=== PATIENT | female | born 2005 | race Caucasian/White ===

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

== ENCOUNTER 2023-07-23 21:43 | Emergency (ER) | payer MEDICAID, SELFPAY ==
--- NOTE | 2023-07-23 21:45 | RT.EKG_ITS ---
APPROVED REPORT Exam: Resting ECG Reason for Exam: chest pain Patient Location: E HR:115 bpm ECG Measurements Heart Rate 115 AXIS SC 119 P 74 QRSd 77 QRS 58 QT 312 T 15 QTc 433 Conclusion Sinus tachycardia...rate> 99 Probable left atrial enlargement...P >50mS, <-0.10mV V1
[2023-07-23 21:46] VITALS: BP 139/78; PULSE 143; TEMP 36.1; O2SAT 100
[2023-07-23 22:30] LABS: Abs Immature Grans 0.06 10^3/uL (0.0-0.06); Absolute Basophil Count 0.07 10^3/uL (0.0-0.2); Absolute Eosinophil Count 0.13 10^3/uL (0.0-0.7); Absolute Lymphocyte Count 1.97 10^3/uL (1.2-3.4); Absolute Monocyte Count 0.49 10^3/uL (0.1-0.8); Absolute Neutrophil Count 8.16 10^3/uL (1.2-6.7); Basophils % 0.6; Eosinophils % 1.2; HCT 42.1 % (36.0-46.0); HGB 13.8 g/dL (11.2-15.7); Immature Grans % 0.6; Lymphocytes % 18.1; MCH 28.7 pg (27.0-33.0); MCHC 32.8 % (32.0-36.0); MCV 88 fL (80-95); MPV 9.3 fL (8.0-11.0); Monocytes % 4.5; Platelet Count 281 10^3/uL (130-400); RBC 4.81 10^6/uL (3.93-5.22); RDW 12.5 % (11.7-14.6); RDW-SD 40.1 fL; WBC 10.88 10^3/uL (4.4-10.8)
[2023-07-23] MEDS: Ondansetron 4 MG/2 ML VIAL IVP (22:33)
[2023-07-23] MEDS: Ketorolac 15 MG/ML VIAL IVP (22:33)
[2023-07-23] MEDS: Normal Saline 1,000 ML 1000 ML IV (22:34)
[2023-07-23 22:40] LABS: Bilirubin Negative (Negative); Blood Trace-lysed (Negative); Clarity Sl Cloudy (Clear); Glucose Negative (Negative); Ketones Negative (Negative); Leukocyte Esterase Trace (Negative); Nitrite Negative (Negative); Specific Gravity >= 1.030 (1.005-1.025); Urobilinogen 0.2 mg/dL (Up to 0.2); pH 6.5 (5-8)
[2023-07-23 22:43] LABS: ALT 17 U/L (14-59); AST 14 U/L (15-37); Albumin 4.4 g/dL (3.4-5.0); Alkaline Phosphatase 92 U/L (46-116); Anion Gap 9.7 mmol/L (3-11); BUN 11 mg/dL (7-18); Bilirubin, Total 0.3 mg/dL (0.2-1.0); CO2 28.3 mmol/L (21.0-32.0); CREATININE 0.8 mg/dL (0.55-1.02); Calcium 8.8 mg/dL (8.5-10.1); Chloride 103 mmol/L (98-107); ETHANOL BLOOD < 3.0 mg/dL (<10); Estimated GFR 108.11 (mL/min/1.73m2); Glucose 151 mg/dL (74-106); Potassium 3.5 mmol/L (3.5-5.1); Sodium 141 mmol/L (136-145); Total Protein 7.9 g/dL (6.4-8.2)
[2023-07-23 22:50] LABS: Bacteria Moderate HPF (Negative); C & S Indicated? No/Sq. Contamination; Casts Negative LPF (Negative); Crystals Few Amorphous HPF (Negative); Epithelial Cells Many HPF (Negative); Mucus Moderate (Negative); RBC 0-2 HPF (0-2); WBC 0-2 HPF (0-5)
[2023-07-23 22:51] LABS: *AMPHETAMINES SCREEN URINE Negative (Negative); *BARBITURATES SCREEN URINE Negative (Negative); *BENZODIAZEPINES SCREEN URINE Negative (Negative); Cannabinoids THC Positive (Negative); Cocaine Screen,Urine Negative (Negative); METHADONE URINE SCREEN Negative (Negative); OPIATES URINE SCREEN Negative (Negative)
--- NOTE | 2023-07-23 22:51 | ED.GENADUL_ITS ---
Discharge Plan Disposition Patient Disposition: Home Condition: Improving Discharge Details Clinical Impression: Cannabis intoxication delirium without use disorder, Back pain, Nausea & vomiting Primary Care Provider: Mayank Sevilla ED Provider: Ced Manjarrez Home Meds and New Rx's Prescriptions: New cyclobenzaprine 10 mg tablet 10 mg PO TID PRN (Reason: muscle spasm) Qty: 20 0RF naproxen [EC-Naprosyn] 375 mg tablet,delayed release (DR/EC) 375 mg PO BID Qty: 20 0RF Discontinued ibuprofen 600 mg Tablet 600 mg PO QID PRN PRNQty: 0 0RF cyclobenzaprine 10 mg tablet Patient Comments: TAKE 1 TABLET BY MOUTH ONCE DAILY AT BEDTIME NEEDED No Action acetaminophen 325 mg Tablet 650 mg PO Q4H PRN PRNQty: 0 0RF nicotine 21-14-7 mg/24 hr patch, TD daily, sequential 1 patch transdermal DAILY Qty: 56 0RF fluticasone propionate 50 mcg/actuation spray,suspension INTRANASAL Patient Comments: USE 1 SPRAY(S) IN EACH NOSTRIL ONCE DAILY escitalopram oxalate 10 mg tablet Patient Comments: TAKE 1 TABLET BY MOUTH ONCE DAILY Discharge Instructions Instructions: Back Pain (ED) Additional Instructions: You can take 1 Naprosyn tablet, every 12 hours with food, as needed for low back discomfort. You can take 1 cyclobenzaprine tablet, up to every 8 hours, as needed for additional relief of back pain and spasm. This medication may make you sleepy and impair your coordination. You should use caution similar to alcohol when taking it. Never drive or perform any hazardous activities, be prepared to get some rest. Follow-up with your regular primary care provider for ongoing management of your chronic low back pain symptoms. He can always return to the ER for any new concerns or sudden changes in your health which you feel require emergency medical attention. Discharge Data Discharge Physician: Ced Manjarrez [facility] General Date/Time Provider Initiated Documentation: 07/23/23 21:54 . HPI Narrative: The patient is a 18-year-old female, with a past medical history significant for anxiety, depression, and chronic back pain, who presents to the emergency department this evening after developing multiple symptoms after she smoked marijuana this evening for the first time and for 5 years. The patient tells me that she has been out of Flexeril for her low back pain and her boyfriend went to the dispensary [place] to get some marijuana for her to see if that would help her back pain. She smoked some marijuana and developed nausea, vomiting, dizziness, and some chest discomfort. The patient also reports that she has been having ongoing pain in my cervix for the last 4 days. She tells me that she has a sharp pain in the base of her pelvis, which has been ongoing. The patient states that she recently started her menstrual cycle. The patient denies any associated diarrhea. The patient denies any associated fevers or chills. The patient has slurred speech and has the appearance of marijuana intoxication. Related Data Home Medications Medication Instructions Recorded Confirmed acetaminophen 325 mg tablet 650 mg (2 x 325 mg) PO Q4H PRN PRN 04/02/22 07/23/23 #0 tabs nicotine 1 patch transdermal DAILY #56 04/02/22 07/23/23 21mg/24hr-14mg/24hr-7mg/24hr daily patches transderm patches,sequentl escitalopram oxalate 10 mg tablet mg 07/23/23 fluticasone propionate 50 intranasal 07/23/23 mcg/actuation nasal spray,suspension cyclobenzaprine 10 mg tablet 10 mg PO TID PRN muscle spasm #20 07/24/23 tabs naproxen 375 mg tablet,delayed 375 mg PO BID #20 tabs 07/24/23 release (EC-Naprosyn) Previous Rx's Medication Instructions Recorded acetaminophen 325 mg tablet 650 mg (2 x 325 mg) PO Q4H PRN PRN 04/02/22 #0 tabs nicotine 1 patch transdermal DAILY #56 04/02/22 21mg/24hr-14mg/24hr-7mg/24hr daily patches transderm patches,sequentl cyclobenzaprine 10 mg tablet 10 mg PO TID PRN muscle spasm #20 07/24/23 tabs naproxen 375 mg tablet,delayed 375 mg PO BID #20 tabs 07/24/23 release (EC-Naprosyn) Allergies Allergy/AdvReac Type Severity Reaction Status Date / Time No Known Allergies Allergy Verified 07/23/23 21:50 General Stated Complaint: Nausea/Vomit/Diar RANDALL: 3 Exam Const General: cooperative, no acute distress and well developed Eyes Conjunctivae: conjunctival abnormality (Injected) EOM: EOM intact bilaterally Resp Effort & Inspection: normal respiratory effort and able to speak in complete sentences Auscultation: clear to auscultation bilaterally Cardio Rate: tachycardic Rhythm: regular rhythm Heart Sounds: S1 normal and S2 normal GI Inspection: normal to inspection Palpation: soft Auscultation: normal bowel sounds Other: Patient reports suprapubic tenderness. There is no rigidity or severe pain to distraction indicative of peritonitis Skin Other: Warm and dry, no obvious rashes Neuro Cranial Nerves: CN's II-XI intact bilaterally Cognition: abnormal cognition Speech: abnormal speech slurred Motor: muscle tone normal throughout and strength 5/5 throughout Sensory Exam: no sensory deficits noted Course Reevaluation(s) Time: 00:06 Reevaluation: The patient reports that she is feeling mildly better after pain medications and nausea medications here in the emergency room. The patient was given a liter of fluid and tolerated a p.o. challenge of oral crackers. She tells me that she is now very hungry and would like some food. I offered additional observation for the patient. I offered to perform a pelvic exam and obtain a bedside ultrasound. In the end, after our informed discussion, the patient would like to be discharged home with some medications will be appropriate for her chronic low back pain. She will be prescribed a short course of high-dose anti- inflammatory medications with an associated muscle relaxer. She has taken Flexeril in the past without problems and this will be the medication that is prescribed to her. Vital Signs Vital signs: Vital Signs Temperature 36.1 C L 07/23/23 21:46 Pulse 143 H 07/23/23 21:46 Blood Pressure 139/78 07/23/23 21:46 Pulse Oximetry 100 07/23/23 21:46 Temperature 36.1 C L 07/23/23 21:46 Pulse 143 H 07/23/23 21:46 Respiratory Effort Normal 07/23/23 21:49 Blood Pressure 139/78 07/23/23 21:46 Blood Pressure Position Sitting 07/23/23 21:46 Pulse Oximetry 100 07/23/23 21:46 Oxygen Delivery Method Room Air 07/23/23 21:46 Oxygen Flow Rate 0 07/23/23 21:46 Pain Level 7 07/23/23 21:46 Lab/Test Results Lab/Test Results: Laboratory Tests Range/Units 07/23/23 07/23/23 22:00 22:03 WBC (4.4-10.8) 10^3/uL 10.88 H RBC (3.93-5.22) 10^6/uL 4.81 Hgb (11.2-15.7) g/dL 13.8 Hct (36.0-46.0) % 42.1 MCV (80-95) fL 88 MCH (27.0-33.0) pg 28.7 MCHC (32.0-36.0) % 32.8 RDW (11.7-14.6) % 12.5 Plt Count (130-400) 10^3/uL 281 MPV (8.0-11.0) fL 9.3 Immature Gran % 0.6 Neutrophils % 75.0 Lymphocytes % 18.1 Monocytes % 4.5 Eosinophils % 1.2 Basophils % 0.6 Nucleated RBC % (0.0-0.3) % 0.0 Absolute Neutrophils (1.2-6.7) 10^3/uL 8.16 H Absolute Lymphocytes (1.2-3.4) 10^3/uL 1.97 Absolute Monocytes (0.1-0.8) 10^3/uL 0.49 Absolute Eosinophils (0.0-0.7) 10^3/uL 0.13 Absolute Basophils (0.0-0.2) 10^3/uL 0.07 Sodium (136-145) mmol/L 141 Potassium (3.5-5.1) mmol/L 3.5 Chloride (98-107) mmol/L 103 Carbon Dioxide (21.0-32.0) mmol/L 28.3 Anion Gap (3-11) mmol/L 9.7 BUN (7-18) mg/dL 11 Creatinine (0.55-1.02) mg/dL 0.8 Est GFR (CKD-EPI 2020) (mL/min/1.73m2) 108.11 Glucose (74-106) mg/dL 151 H Calcium (8.5-10.1) mg/dL 8.8 Total Bilirubin (0.2-1.0) mg/dL 0.3 AST (15-37) U/L 14 L ALT (14-59) U/L 17 Alkaline Phosphatase (46-116) U/L 92 Total Protein (6.4-8.2) g/dL 7.9 Albumin (3.4-5.0) g/dL 4.4 Urine Color (Yellow) Yellow Urine Clarity (Clear) Sl Cloudy Urine pH (5-8) 6.5 Ur Specific [place] (1.005-1.025) >= 1.030 H Urine Protein (Neg-Trace) mg/dL Negative Urine Ketones (Negative) mg/dL Negative Urine Blood (Negative) Trace-lysed H Urine Nitrite (Negative) Negative Urine Bilirubin (Negative) Negative Urine Urobilinogen (Up to 0.2) mg/dL 0.2 Ur Leukocyte Esterase (Negative) Trace H Urine RBC (0-2) HPF 0-2 Urine WBC (0-5) HPF 0-2 Ur Epithelial Cells (Negative) HPF Many Urine Crystals (Negative) HPF Few Amorphous Urine Bacteria (Negative) HPF Moderate Urine Casts (Negative) LPF Negative Urine Mucus (Negative) Moderate Ur Culture Indicated? No/Sq. Contamination Urine Glucose (Negative) mg/dL Negative Ethyl Alcohol (<10) mg/dL < 3.0 POC- Test(urine) Negative Medical Decision Making The patient was seen and examined. 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 Her EKG reveals a sinus tachycardia with a ventricular response rate of 115 bpm. There is relatively normal repolarization throughout other than the inferior leads where there are scattered abnormalities. The patient has slurred speech, difficulty with cognitive function, and bilaterally injected sclera and conjunctiva, with the obvious appearance of marijuana intoxication. She has a multitude of other complaints including chest pain, abdominal pain, chronic low back pain, and cervix pain. The last of these appears to be more chronic in nature, but seems to be associated with her menstruation. She is not by [id number] testing. She will have a standard abdominal workup obtained for lower abdominal pathology. She will be tested for other drugs of misuse and alcohol as part of her toxicologic workup. The patient was given IV fluid hydration, IV Zofran, and IV Toradol to help improve her symptoms. The patient will be reevaluated after some period of observation to determine if she needs anxiolytic medications to help out with her marijuana toxidrome. She will be reassessed for her hydration level and we can certainly address her pelvic discomfort if needed by ultrasound or pelvic exam in an appropriate interval. 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 Mother Crohn's disease Mental disorder Father Asthma as child Other Diabetes mat great GM, pat cousin Mental disorder both sides with some anxiety/depression Stroke MGF Asthma maternal Social History Smoking/Tobacco Use Status: Former Tobacco Use Smoking risk assessment performed?: Yes Alcohol Intake: never Drug use: Never Substance use type: marijuana Do you feel safe at home: Yes Do you feel safe in your relationship?: Yes
[2023-07-23 22:52] LABS: Tricyclic Antidepressants Negative (Negative)
[2023-07-24 00:10] VITALS: PULSE 77; RESP 18; TEMP 36.6; O2SAT 98
== END 2023-07-24 00:21 | disposition home or self-care (01) ==
PROVIDERS: Emergency Provider Emergency Medicine Emergency Medical Services; PCP Family Medicine
DX: F12.921 Cannabis use, unspecified with intoxication delirium; M54.50 Low back pain, unspecified; G89.29 Other chronic pain; R11.2 Nausea with vomiting, unspecified; R00.0 Tachycardia, unspecified; R07.9 Chest pain, unspecified
CPT/HCPCS: 80053; 80307; 81025; 93005; 96361; 96374; 96375; 99284; 80320; 81003; 81015; 85025; 93010; J1885; J2405

== ENCOUNTER 2023-08-29 11:21 | Emergency (ER) | payer MEDICAID, SELFPAY ==
[2023-08-29 11:24] VITALS: BP 117/71; PULSE 105; RESP 20; TEMP 36.6; O2SAT 100
--- NOTE | 2023-08-29 11:55 | ED.GENADUL_ITS ---
Discharge Plan Disposition Patient Disposition: Home Condition: Stable Discharge Details Clinical Impression: Paronychia of finger Primary Care Provider: Mayank Sevilla ED Provider: Bradly Jeronimo Home Meds and New Rx's Prescriptions: New mupirocin 2 % ointment 1 applic topical TID Qty: 15 0RF Continued 28-800 mg-mcg tablet 1 tab PO DAILY escitalopram oxalate 10 mg tablet 10 mg PO DAILY Patient Comments: TAKE 1 TABLET BY MOUTH ONCE DAILY cyclobenzaprine 10 mg tablet 10 mg PO TID PRN (Reason: muscle spasm) Qty: 20 0RF Discharge Instructions Instructions: Paronychia (ED) Additional Instructions: Please perform warm soaks a few times a day for the next 1 week. Apply topical antibiotic ointment after soak. Please contact your primary care physician to arrange follow-up as needed. Return to the ER immediately for any worsening or new concerning symptoms. Referrals: Mayank Sevilla [Primary Care Provider] - [facility] General Mode of arrival: ambulatory . Date/Time Provider Initiated Documentation: 08/29/23 11:29 . Limitations to Documentation: no limitations . Information obtained by: patient . HPI Narrative: 18-year-old female presents with chief complaint of finger infection. Patient notes left third digit with localized swelling, pain and inflammation along her nailbed over the past week. Symptoms worsening. Patient has no she bites her nails. Related Data Home Medications Medication Instructions Recorded Confirmed escitalopram oxalate 10 mg tablet 10 mg PO DAILY 07/23/23 08/29/23 cyclobenzaprine 10 mg tablet 10 mg PO TID PRN muscle spasm #20 07/24/23 08/29/23 tabs mupirocin 2 % topical ointment 1 applic topical TID #15 grams 08/29/23 vit no.133-ferrous 1 tab PO DAILY 08/29/23 08/29/23 fumarate 28 mg-folic acid 800 mcg tablet () Previous Rx's Medication Instructions Recorded cyclobenzaprine 10 mg tablet 10 mg PO TID PRN muscle spasm #20 07/24/23 tabs mupirocin 2 % topical ointment 1 applic topical TID #15 grams 08/29/23 Allergies Allergy/AdvReac Type Severity Reaction Status Date / Time No Known Allergies Allergy Verified 08/29/23 11:36 General Stated Complaint: RashLesion RANDALL: 4 Review of Systems Integumentary/Breasts Skin/Breast: Reports as per HPI Exam Const General: cooperative and no acute distress HENMT Mouth: moist mucous membranes Skin Other: Left third digit paronychia Course Vital Signs Vital signs: Vital Signs Temperature 36.6 C 08/29/23 11:24 Pulse 105 H 08/29/23 11:24 Respiratory Rate 20 08/29/23 11:24 Blood Pressure 117/71 08/29/23 11:24 Pulse Oximetry 100 08/29/23 11:24 Temperature 36.6 C 08/29/23 11:24 Temperature Source Temporal Artery Scan 08/29/23 11:24 Pulse 105 H 08/29/23 11:24 Respiratory Rate 20 08/29/23 11:24 Respiratory Effort Normal 08/29/23 11:26 Blood Pressure 117/71 08/29/23 11:24 Blood Pressure Position Sitting 08/29/23 11:24 Pulse Oximetry 100 08/29/23 11:24 Oxygen Delivery Method Room Air 08/29/23 11:24 Oxygen Flow Rate 0 08/29/23 11:24 Pain Level 4 08/29/23 11:24 Procedures Abscess I/D Site: Hand Side (if applicable): Left Local Anesthetic: Other Anesthetic (LE) Technique: Incised with #11 Blade Amount of fluid expressed (mL): 0 Irrigation: No Packing used?: None Complications: Pain Medical Decision Making 18-year-old female, recently learned she is , here with paronychia of the left third digit. No associated cellulitis. Possible tiny abscess. Topical anesthetic ointment applied. Small incision made to drain area. I recommended warm soaks followed by mupirocin ointment and routine outpatient fol low-up. 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 Mother Crohn's disease Mental disorder Father Asthma as child Other Diabetes mat great GM, pat cousin Mental disorder both sides with some anxiety/depression Stroke MGF Asthma maternal Social History Smoking/Tobacco Use Status: Former Tobacco Use Smoking risk assessment performed?: Yes Alcohol Intake: never Drug use: Never Substance use type: marijuana Do you feel safe at home: Yes Do you feel safe in your relationship?: Yes
[2023-08-29] MEDS: Lidocaine/Epinephri/Tetracaine Topical Gel 3 ML TP (12:03)
[2023-08-29 12:43] VITALS: BP 117/71; PULSE 86; RESP 20; TEMP 36.6; O2SAT 100
== END 2023-08-29 12:44 | disposition home or self-care (01) ==
PROVIDERS: Emergency Provider Student in an Organized Health Care Education/Training Program; PCP Family Medicine
DX: O98.811 Other maternal infectious and parasitic diseases complicating pregnancy, first trimester (principal); L03.012 Cellulitis of left finger; Z87.891 Personal history of nicotine dependence
CPT/HCPCS: 10060; 99283

== ENCOUNTER 2023-09-11 10:45 | Emergency (ER) | payer MEDICAID, SELFPAY ==
[2023-09-11 10:50] VITALS: BP 126/87; PULSE 141; RESP 20; TEMP 36.7; O2SAT 100
--- NOTE | 2023-09-11 11:30 | RT.EKG_ITS ---
APPROVED REPORT Exam: Resting ECG Reason for Exam: r/o QT prolongation Patient Location: E HR:75 bpm ECG Measurements Heart Rate 75 AXIS MA 105 P -24 QRSd 76 QRS 34 QT 372 T 19 QTc 416 Conclusion Sinus rhythm...normal P axis, V-rate 60- 99 Physician: no stemi
[2023-09-11 11:40] LABS: Abs Immature Grans 0.01 10^3/uL (0.0-0.06); Absolute Basophil Count 0.06 10^3/uL (0.0-0.2); Absolute Eosinophil Count 0.01 10^3/uL (0.0-0.7); Absolute Monocyte Count 0.59 10^3/uL (0.1-0.8); Absolute Neutrophil Count 3.53 10^3/uL (1.2-6.7); Basophils % 1.1 %; Eosinophils % 0.2 %; HCT 44.4 % (36.0-46.0); Immature Grans % 0.2 %; Lymphocytes % 26.3 %; MCH 28.2 pg (27.0-33.0); MCHC 33.8 % (32.0-36.0); MCV 84 fL (80-95); Monocytes % 10.4 %; Neutrophils % 61.8 %; Platelet Count 249 10^3/uL (130-400); RBC 5.32 10^6/uL (3.93-5.22); RDW 12.3 % (11.7-14.6); RDW-SD 37.6 fL
[2023-09-11] MEDS: Normal Saline 1,000 ML 1000 ML IV (11:44)
[2023-09-11] MEDS: Ondansetron 4 MG/2 ML VIAL IVP (11:45)
--- NOTE | 2023-09-11 11:45 | DI.US_ITS ---
Exam(s) US OB 1ST TRIMESTER EXAM: US OB 1ST TRIMESTER CLINICAL HISTORY: abd pain, n/v, constipation. COMPARISON: No exams were available for comparison TECHNIQUE: Transabdominal Transvaginal first trimester obstetrical ultrasound performed. FINDINGS: Sonographic images demonstrate a single intrauterine gestation. There is a cystic area with in the e ndometrium adjacent to the primary gestational sac which could represent a 2nd gestational sac althou gh there is no pole within it. It measures 6 x 10 by 8 millimeters. A yolk sac and pole are seen within the larger gestational sac.. Sonographically assessed gestational age based upon crown-rump length of 0.8 cm is: 6 weeks 5 days Estimated date of delivery based on this ultrasound is: 01 May 2024 Estimated date of delivery based upon LMP: 28 April 2024 heart rate motion is was visible but not measured.. No free fluid identified. Both ovaries appear sonographically normal. Pelvic Measurments Uterus: 9.7 x 4 x 1 x 6 cm Rt Ovary: 3.0 x 2.2 x 2.9 cm Lt Ovary: 2.8 x 1.5 x 2.8 cm IMPRESSION: Single live intrauterine gestation measuring 6 weeks 5 days. Adjacent small cystic area could represent 2nd gestational sac without visible pole a blighted twin.. DATA REPOSITORY:
--- NOTE | 2023-09-11 12:01 | ED.GENADUL_ITS ---
Discharge Plan Disposition Patient Disposition: Home Condition: Stable Discharge Details Clinical Impression: Nausea and vomiting during , Constipation Primary Care Provider: Mayank Sevilla ED Provider: Tori Burciaga Home Meds and New Rx's Prescriptions: No Action 28-800 mg-mcg tablet 1 tab PO DAILY mupirocin 2 % ointment 1 applic topical TID Qty: 15 0RF escitalopram oxalate 10 mg tablet 10 mg PO DAILY Patient Comments: TAKE 1 TABLET BY MOUTH ONCE DAILY cyclobenzaprine 10 mg tablet 10 mg PO TID PRN (Reason: muscle spasm) Qty: 20 0RF Discharge Instructions Instructions: Constipation (ED) Additional Instructions: I recommend that you use wlbs-[id number] doxylamine (unisom) 25 mg and Vitamin B6 25 mg each night for nausea/vomiting. Please call your primary care provider/[employer] if you have any concerns about nausea and vomiting in . Stay well-hydrated, drinking plenty of fluids throughout the day and eating gentle foods that are soothing to the stomach For constipation I recommend MiraLAX. Please use 1 full cap in 8 ounces of water or other liquid. I recommend they take a dose upon discharge and then again at night. This will help soften your stools. Drink plenty of fluids to remain well-hydrated, as dehydration may increase constipation. Return to emergency care if you develop new severe abdominal pain, uncontrollable vomiting, episodes of passing out, vaginal bleeding, or if you are very worried and need to be rechecked again immediately Referrals: Mayank Sevilla [Primary Care Provider] - [facility] General Date/Time Provider Initiated Documentation: 09/11/23 11:29 . Related Data Home Medications Medication Instructions Recorded Confirmed escitalopram oxalate 10 mg tablet 10 mg PO DAILY 07/23/23 09/11/23 cyclobenzaprine 10 mg tablet 10 mg PO TID PRN muscle spasm #20 07/24/23 09/11/23 tabs mupirocin 2 % topical ointment 1 applic topical TID #15 grams 08/29/23 vit no.133-ferrous 1 tab PO DAILY 08/29/23 09/11/23 fumarate 28 mg-folic acid 800 mcg tablet () Previous Rx's Medication Instructions Recorded cyclobenzaprine 10 mg tablet 10 mg PO TID PRN muscle spasm #20 07/24/23 tabs mupirocin 2 % topical ointment 1 applic topical TID #15 grams 08/29/23 Allergies Allergy/AdvReac Type Severity Reaction Status Date / Time No Known Allergies Allergy Verified 09/11/23 10:54 General Stated Complaint: Nausea/Vomit/Diar RANDALL: 3 Course Vital Signs Vital signs: Vital Signs Temperature 36.7 C 09/11/23 10:50 Pulse 141 H 09/11/23 10:50 Respiratory Rate 20 09/11/23 10:50 Blood Pressure 126/87 09/11/23 10:50 Pulse Oximetry 100 09/11/23 10:50 Temperature 36.7 C 09/11/23 10:50 Temperature Source Skin 09/11/23 10:50 Pulse 141 H 09/11/23 10:50 Respiratory Rate 20 09/11/23 10:50 Respiratory Effort Normal 09/11/23 10:53 Blood Pressure 126/87 09/11/23 10:50 Blood Pressure Position Sitting 09/11/23 10:50 Pulse Oximetry 100 09/11/23 10:50 Oxygen Delivery Method Room Air 09/11/23 10:50 Oxygen Flow Rate 0 09/11/23 10:50 Lab/Test Results Lab/Test Results: Laboratory Tests Range/Units 09/11/23 11:30 WBC (4.4-10.8) 10^3/uL 5.70 RBC (3.93-5.22) 10^6/uL 5.32 H Hgb (11.2-15.7) g/dL 15.0 Hct (36.0-46.0) % 44.4 MCV (80-95) fL 84 MCH (27.0-33.0) pg 28.2 MCHC (32.0-36.0) % 33.8 RDW (11.7-14.6) % 12.3 Plt Count (130-400) 10^3/uL 249 MPV (8.0-11.0) fL 9.0 Immature Gran % % 0.2 Neutrophils % % 61.8 Lymphocytes % % 26.3 Monocytes % % 10.4 Eosinophils % % 0.2 Basophils % % 1.1 Nucleated RBC % (0.0-0.3) % 0.0 Absolute Neutrophils (1.2-6.7) 10^3/uL 3.53 Absolute Lymphocytes (1.2-3.4) 10^3/uL 1.50 Absolute Monocytes (0.1-0.8) 10^3/uL 0.59 Absolute Eosinophils (0.0-0.7) 10^3/uL 0.01 Absolute Basophils (0.0-0.2) 10^3/uL 0.06 Medical Decision Making Miri is a 18-year-old female A0 who is 7 weeks (LMP 07/23/23) who presents to the emergency department for evaluation of lower abdominal pain accompanied by nausea/vomiting and constipation. She reports that she last had a bowel movement 7 days ago. She does not normally have constipation. She reports she started vomiting a couple of days ago, has been unable to hold anything down since onset. She reports lower abdominal pain described as a cramping. Denies fever/chills, congestion, cough, chest pain, blood in stool or emesis, change in bladder function, vaginal discharge, history of STDs, previous pregnancies. She denies significant past medical history. Physical exam reassuring. Abdomen is soft, nondistended, diffusely tender to palpation with normal active bowel sounds. Easy work of breathing, lung sounds clear bilaterally. Mild tachycardia noted. Tacky mucous membranes. Patient declined rectal exam. DDx includes was not limited to: Viral gastroenteritis, ectopic , constipation, fecal impaction, normal nausea and vomiting in I independently interpreted the following tests: CBC reassuring. CMP notable for mild hyponatremia, sodium 133. hCG positive, quantitative 68,419. Ultrasound reassuring, intrauterine gestation measuring 6 weeks 5 days noted with adjacent cystic area that could represent second gestational sac without viable pole. While in the emergency department Lynn received IV fluids, Zofran, and Tylenol. She reported that she felt like her nausea was improved, was able to eat some crackers and drink some anette cristobal Overall workup today reassuring, likely nausea/vomit associated and constipation. Recommend use of MiraLAX at home, as well as vitamin B6 and doxylamine. Reviewed discharge instructions with patient; she is agreeable with plan of care Imaging Data Radiologic Study: Radiologist's impression: Exam(s) US OB 1ST TRIMESTER EXAM: US OB 1ST TRIMESTER CLINICAL HISTORY: abd pain, n/v, constipation. COMPARISON: No exams were available for comparison TECHNIQUE: Transabdominal Transvaginal first trimester obstetrical ultrasound performed. FINDINGS: Sonographic images demonstrate a single intrauterine gestation. There is a cystic area with in the endometrium adjacent to the primary gestational sac which could represent a 2nd gestational sac although there is no pole within it. It measures 6 x 10 by 8 millimeters. A yolk sac and pole are seen within the larger gestational sac.. Sonographically assessed gestational age based upon crown-rump length of 0.8 cm is: 6 weeks 5 days Estimated date of delivery based on this ultrasound is: 01 May 2024 Estimated date of delivery based upon LMP: 28 April 2024 heart rate motion is was visible but not measured.. No free fluid identified. Both ovaries appear sonographically normal. Pelvic Measurments Uterus: 9.7 x 4 x 1 x 6 cm Rt Ovary: 3.0 x 2.2 x 2.9 cm Lt Ovary: 2.8 x 1.5 x 2.8 cm IMPRESSION: Single live intrauterine gestation measuring 6 weeks 5 days. Adjacent small cystic area could represent 2nd gestational sac without visible pole a blighted twin.. 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 Mother Crohn's disease Mental disorder Father Asthma as child Other Diabetes mat great GM, pat cousin Mental disorder both sides with some anxiety/depression Stroke MGF Asthma maternal Social History Smoking/Tobacco Use Status: Former Tobacco Use Smoking risk assessment performed?: Yes Alcohol Intake: never Drug use: Never Substance use type: marijuana Do you feel safe at home: Yes Do you feel safe in your relationship?: Yes
[2023-09-11] MEDS: Acetaminophen 325 MG TAB 650 MG PO (12:04)
[2023-09-11 12:15] LABS: ALT 23 U/L (14-59); AST 12 U/L (15-37); Albumin 4.6 g/dL (3.4-5.0); Alkaline Phosphatase 80 U/L (46-116); Anion Gap 11.6 mmol/L (3-11); BUN 10 mg/dL (7-18); Bilirubin, Total 0.7 mg/dL (0.2-1.0); CO2 20.4 mmol/L (21.0-32.0); CREATININE 0.7 mg/dL (0.55-1.02); Calcium 9.4 mg/dL (8.5-10.1); Chloride 101 mmol/L (98-107); Glucose 80 mg/dL (74-106); Potassium 3.8 mmol/L (3.5-5.1); Sodium 133 mmol/L (136-145); Total Protein 8.4 g/dL (6.4-8.2)
[2023-09-11 12:17] LABS: HCG Quant, Pregnancy 68419 mIU/mL (1-3)
[2023-09-11 12:25] VITALS: BP 98/60; PULSE 90; RESP 16; O2SAT 98
[2023-09-11 14:38] VITALS: BP 100/65; PULSE 127; RESP 16; O2SAT 99
--- NOTE | 2023-09-11 14:40 | NUR.NOTE ---
Nursing Note: patient DC pulse 127 asymptomatic. Patient reported her pulse rate runs high and she follows here pcp about this issue. HR reported to ED provider. Provider suggested to increase fluid intake and f/u with PCP or OB.
== END 2023-09-11 14:38 | disposition home or self-care (01) ==
PROVIDERS: Emergency Provider Nurse Practitioner Family; PCP Family Medicine
DX: O21.8 Other vomiting complicating pregnancy (principal); Z3A.01 Less than 8 weeks gestation of pregnancy; Z87.891 Personal history of nicotine dependence
CPT/HCPCS: 36415; 80053; 93005; 96374; 99284; 76801; 83735; 84702; 85025; 93010; J2405

== ENCOUNTER 2023-09-12 21:22 | Emergency (ER) | payer MEDICAID, SELFPAY ==
[2023-09-12 21:26] VITALS: BP 132/66; PULSE 114; RESP 18; TEMP 36.7; O2SAT 98
[2023-09-12 21:49] LABS: HCT 40.1 % (36.0-46.0); HGB 13.7 g/dL (11.2-15.7); MCH 28.4 pg (27.0-33.0); MCHC 34.2 % (32.0-36.0); MCV 83 fL (80-95); Platelet Count 242 10^3/uL (130-400); RBC 4.82 10^6/uL (3.93-5.22); RDW 12.3 % (11.7-14.6); RDW-SD 37.5 fL; WBC 6.42 10^3/uL (4.4-10.8)
--- NOTE | 2023-09-12 21:55 | W.ED.GENAD ---
Discharge Plan Disposition Patient Disposition: Home Condition: Stable Discharge Details Clinical Impression: Yanira-Kelly tear, Nausea and vomiting during Primary Care Provider: Mayank Sevilla ED Provider: Tori Burciaga Home Meds and New Rx's Prescriptions: New doxylamine-pyridoxine (vit B6) [Diclegis] 10-10 mg tablet,delayed release (DR/EC) 1 tab PO QHS Qty: 20 0RF Rx Instructions: Take 2 tablets at bedtime for days one and two. If symptoms persist, may take 1 tablet in the AM and 2 tablets at bedtime starting day three. No Action 28-800 mg-mcg tablet 1 tab PO DAILY mupirocin 2 % ointment 1 applic topical TID Qty: 15 0RF escitalopram oxalate 10 mg tablet 10 mg PO DAILY Patient Comments: TAKE 1 TABLET BY MOUTH ONCE DAILY cyclobenzaprine 10 mg tablet 10 mg PO TID PRN (Reason: muscle spasm) Qty: 20 0RF Discharge Instructions Additional Instructions: Call your family doctor to schedule an appointment first thing in the morning. I recommend that you discuss your visit to the last 2 days over the phone prior to then; a telehealth appointment is a great idea to check in prior to an in person appointment. Please take the Diclegis (combination vitamin B6 and Unisom) as prescribed. This has been sent to the [facility] in [place]. 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 You may use the Zofran provided only for severe nausea/vomiting for the next couple of days while the likely just is taking time to work. This is only a short-term prescription, not to be used long-term. I also recommend that you use strong anette tea to help with nausea in . Stay well-hydrated, drinking plenty of electrolyte rich fluids such as Gatorlyte and eating crackers. Return to emergency care if develop severe abdominal pain, uncontrollable vomiting despite treatment, episodes of passing out, vaginal bleeding, or if you are very worried and need to be rechecked again immediately Referrals: Andrew Frederick [ CONSULTING PHYSICIAN] - HPI General Date/Time Provider Initiated Documentation: 09/12/23 21:25. HPI Narrative: Miri is a 18-year-old G1, who is 6 weeks 6 days with a single intrauterine based on ultrasound who presents to the emergency department for continued nausea/vomiting with lower abdominal discomfort. She was seen here in the emergency department yesterday for same symptoms, had full resolution of symptoms after IV fluids and Zofran. Today she became concerned because she was unable to hold out any fluids all day and vomited dark red blood this evening. She denies fever/chills, viral symptoms such as congestion, sore throat, cough, vaginal bleeding or discharge, change in urine output. She has been constipated yesterday, did have a bowel movement today. Denies blood in stool. Boyfriend at bedside. Related Data Home Medications Medication Instructions Recorded Confirmed escitalopram oxalate 10 mg tablet 10 mg PO DAILY 07/23/23 09/12/23 cyclobenzaprine 10 mg tablet 10 mg PO TID PRN muscle spasm #20 07/24/23 09/12/23 tabs mupirocin 2 % topical ointment 1 applic topical TID #15 grams 08/29/23 09/12/23 vit no.133-ferrous 1 tab PO DAILY 08/29/23 09/12/23 fumarate 28 mg-folic acid 800 mcg tablet () doxylamine 10 mg-pyridoxine (vit 1 tab PO QHS #20 tabs 09/12/23 B6) 10 mg tablet,delayed release (Diclegis) Previous Rx's Medication Instructions Recorded cyclobenzaprine 10 mg tablet 10 mg PO TID PRN muscle spasm #20 07/24/23 tabs mupirocin 2 % topical ointment 1 applic topical TID #15 grams 08/29/23 doxylamine 10 mg-pyridoxine (vit 1 tab PO QHS #20 tabs 09/12/23 B6) 10 mg tablet,delayed release (Diclegis) Allergies Allergy/AdvReac Type Severity Reaction Status Date / Time No Known Allergies Allergy Verified 09/12/23 21:25 General Stated Complaint: Nausea/Vomit/Diar RANDALL: 3 Review of Systems Narrative: see HPI Exam Const General: cooperative, well developed, well groomed and anxious HENMT Mouth: oral mucosae normal, oropharynx normal and moist mucous membranes abnormal (slightly tacky) Resp Effort & Inspection: normal respiratory effort and able to speak in complete sentences Auscultation: clear to auscultation bilaterally Cardio Rate: tachycardic Rhythm: regular rhythm GI Inspection: normal to inspection Palpation: soft, not firm, no hernias, no pulsatile masses, not rigid and tender (diffuse) Auscultation: normal bowel sounds Course Vital Signs Vital signs: Vital Signs Temperature 36.7 C 09/12/23 21:26 Pulse 114 H 09/12/23 21:26 Respiratory Rate 18 09/12/23 21:26 Blood Pressure 132/66 09/12/23 21:26 Pulse Oximetry 98 09/12/23 21:26 Temperature 36.7 C 09/12/23 21:26 Temperature Source Temporal Artery Scan 09/12/23 21:26 Pulse 114 H 09/12/23 21:26 Respiratory Rate 18 09/12/23 21:26 Respiratory Effort Normal, Non-Labored 09/12/23 21:28 Blood Pressure 132/66 09/12/23 21:26 Blood Pressure Position Sitting 09/12/23 21:26 Pulse Oximetry 98 09/12/23 21:26 Oxygen Delivery Method Room Air 09/12/23 21:26 Oxygen Flow Rate 0 09/12/23 21:26 Pain Level 10 09/12/23 21:26 Lab/Test Results Lab/Test Results: Laboratory Tests Range/Units 09/12/23 21:38 WBC (4.4-10.8) 10^3/uL 6.42 RBC (3.93-5.22) 10^6/uL 4.82 Hgb (11.2-15.7) g/dL 13.7 Hct (36.0-46.0) % 40.1 MCV (80-95) fL 83 MCH (27.0-33.0) pg 28.4 MCHC (32.0-36.0) % 34.2 RDW (11.7-14.6) % 12.3 Plt Count (130-400) 10^3/uL 242 MPV (8.0-11.0) fL 9.0 Medical Decision Making Miri is a 18-year-old G1, who is 6 weeks 6 days with a single intrauterine based on ultrasound who presents to the emergency department for continued nausea/vomiting with lower abdominal discomfort. She was seen here in the emergency department yesterday for same symptoms, had full resolution of symptoms after IV fluids and Zofran. Today she became concerned because she was unable to hold out any fluids all day and vomited dark red blood this evening. She denies fever/chills, viral symptoms such as congestion, sore throat, cough, vaginal bleeding or discharge, change in urine output. She has been constipated yesterday, did have a bowel movement today. Denies blood in stool. Boyfriend at bedside. Physical exam very reassuring. Abdomen is soft, nondistended, diffusely tender to palpation with normal active bowel sounds. Moist mucous membranes. Easy work of breathing, lung sounds clear bilaterally. Normal heart sounds. Patient is alert and interactive, does appear anxious but otherwise in no acute distress. History and presentation consistent with Yanira-Kelly tear due to forceful vomiting in first trimester of . Labs ordered to rule out coagulopathy, LUKAS, electrolyte imbalance, dehydration. No red flags concerning for acute abdomen or bowel obstruction requiring diagnostic imaging, as sx are consistent with previous presentation (yesterday) and are fully resolved with symptomatic mgmt. I independently interpreted the following tests: CBC, BMP, PTT/PT/INR all reassuring. While in the emergency dept Miri received IV zofran and fluids. She did continue to report some nausea, so B6 and diphenhydramine given with good resolution of nausea (pt able to take gingerale). She does continue to report abdominal discomfort, says that tylenol yesterday helped. A dose of APAP given for abd discomfort. Miri reports she is feeling good enough to go home, discharge instructions reviewed with patient and her boyfriend. A bottle of 3 tablets of Zofran given, and prescription for Diclegis sent to pharmacy. 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 Mother Crohn's disease Mental disorder Father Asthma as child Other Diabetes mat great GM, pat cousin Mental disorder both sides with some anxiety/depression Stroke MGF Asthma maternal Social History Smoking/Tobacco Use Status: Former Tobacco Use Smoking risk assessment performed?: Yes Alcohol Intake: never Drug use: Never Substance use type: marijuana Housing: house Do you feel safe at home: Yes Do you feel safe in your relationship?: Yes
[2023-09-12] MEDS: Ondansetron 4 MG/2 ML VIAL IVP (21:57)
[2023-09-12] MEDS: Lactated Ringers 1,000 ML 1000 ML IV (21:57)
[2023-09-12 21:59] LABS: BUN 8 mg/dL (7-18); CREATININE 0.6 mg/dL (0.55-1.02); Calcium 8.9 mg/dL (8.5-10.1); Chloride 102 mmol/L (98-107); Glucose 85 mg/dL (74-106); Potassium 3.6 mmol/L (3.5-5.1); Sodium 137 mmol/L (136-145)
[2023-09-12 22:03] LABS: INR 1.1 (0.9-1.1); PTT Activated 26.7 sec (23.6-32.8); Prothrombin Time 11.4 sec (9.1-11.1)
[2023-09-12] MEDS: diphenhydrAMINE 50 MG/ML VIAL 25 MG IVP (22:55)
[2023-09-12] MEDS: Ondansetron O.D.T. 4 MG TABEF, 3 TABS/BTL PO (23:28)
[2023-09-12] MEDS: Acetaminophen 500 MG TAB PO (23:28)
[2023-09-12 23:36] VITALS: BP 98/67; PULSE 87; RESP 22; TEMP 36.8; O2SAT 99
--- NOTE | 2023-09-12 23:53 | NUR.NOTE ---
Pt placed on care management referral list to see PCP for nausea, vomiting, and to be seen within 1-2 weeks per Naila.
== END 2023-09-12 23:34 | disposition home or self-care (01) ==
PROVIDERS: Emergency Provider Nurse Practitioner Family; PCP Family Medicine
DX: O99.611 Diseases of the digestive system complicating pregnancy, first trimester (principal); O21.9 Vomiting of pregnancy, unspecified; Z3A.01 Less than 8 weeks gestation of pregnancy; R10.30 Lower abdominal pain, unspecified; K22.6 Gastro-esophageal laceration-hemorrhage syndrome
CPT/HCPCS: 80048; 85027; 96361; 96374; 96375; 99284; 85610; 85730; J1200; J2405

== ENCOUNTER 2023-10-07 12:06 | Outpatient (REF) | payer MEDICAID, SELFPAY ==
[2023-10-07 16:30] LABS: *AMPHETAMINES SCREEN URINE Negative (Negative); *BARBITURATES SCREEN URINE Negative (Negative); *BENZODIAZEPINES SCREEN URINE Negative (Negative); Cannabinoids THC Negative (Negative); Cocaine Screen,Urine Negative (Negative); METHADONE URINE SCREEN Negative (Negative); OPIATES URINE SCREEN Negative (Negative)
[2023-10-07 16:31] LABS: Tricyclic Antidepressants Negative (Negative)
[2023-10-08 12:16] LABS: Fentanyl Scr w/Rfx Confirm Negative ng/mL (<1)
[2023-10-18 11:40] LABS: Buprenorphine Negative ng/mL (Cutoff: 5.0); Norbuprenorphine Negative ng/mL (Cutoff: 2.5)
== END 2023-10-07 12:07 | disposition home or self-care (01) ==
LOC: LBN 12:06
PROVIDERS: PCP Family Medicine; Visit Provider Advanced Practice Midwife
DX: Z34.90 Encounter for supervision of normal pregnancy, unspecified, unspecified trimester (principal)
CPT/HCPCS: 80307; 80348; 87086

== ENCOUNTER 2023-10-07 19:07 | Outpatient (CLI) | payer MEDICAID, SELFPAY ==
[2023-10-07 14:08] LABS: Panorama Kit Sent via Fed Ex
[2023-10-08 10:09] LABS: Varicella IgG Antibody Positive (See Note)
[2023-10-21 12:32] LABS: Result Summary NEGATIVE; Specimen WB Whole Blood
== END 2023-10-07 19:08 | disposition home or self-care (01) ==
LOC: LBO 19:08
PROVIDERS: PCP Family Medicine; Visit Provider Advanced Practice Midwife
DX: Z34.90 Encounter for supervision of normal pregnancy, unspecified, unspecified trimester (principal); Z34.01 Encounter for supervision of normal first pregnancy, first trimester
CPT/HCPCS: 36415; 81220; 81222; 86787; 86850; 86900; 86901

== ENCOUNTER 2023-10-11 15:05 | Emergency (ER) | payer MEDICAID, SELFPAY ==
[2023-10-11] VITALS (16 sets, daily range): BP systolic 92–128; BP diastolic 46–71; PULSE 92–124; RESP 5–27; TEMP 37.1; O2SAT 79–100
--- NOTE | 2023-10-11 15:00 | RT.EKG_ITS ---
APPROVED REPORT Exam: Resting ECG Reason for Exam: Shortness of breath Patient Location: E HR:100 bpm ECG Measurements Heart Rate 100 AXIS IL 112 P 60 QRSd 75 QRS 47 QT 324 T 12 QTc 418 Conclusion Sinus tachycardia...rate> 99
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
[2023-10-11 15:38] LABS: Abs Immature Grans 0.03 10^3/uL (0.0-0.06); Absolute Basophil Count 0.03 10^3/uL (0.0-0.2); Absolute Eosinophil Count 0.07 10^3/uL (0.0-0.7); Absolute Lymphocyte Count 1.58 10^3/uL (1.2-3.4); Absolute Monocyte Count 0.64 10^3/uL (0.1-0.8); Absolute Neutrophil Count 5.33 10^3/uL (1.2-6.7); Basophils % 0.4 %; Eosinophils % 0.9 %; HCT 37.6 % (36.0-46.0); HGB 12.8 g/dL (11.2-15.7); Immature Grans % 0.4 %; Lymphocytes % 20.6 %; MCH 28.3 pg (27.0-33.0); MCV 83 fL (80-95); Monocytes % 8.3 %; Neutrophils % 69.4 %; Platelet Count 238 10^3/uL (130-400); RBC 4.53 10^6/uL (3.93-5.22); RDW 12.5 % (11.7-14.6); RDW-SD 38.2 fL; WBC 7.68 10^3/uL (4.4-10.8)
[2023-10-11] MEDS: Metoclopramide 10 MG/2 ML VIAL IVP (15:41)
[2023-10-11] MEDS: Albuterol 2.5 MG/3 ML INH SOLN VIAL UPD (15:44)
[2023-10-11] MEDS: Normal Saline 50 ML 200 ML (15:45)
[2023-10-11 15:54] LABS: Lipase 26 U/L (16-77)
[2023-10-11 15:57] LABS: ALT 34 U/L (14-59); AST 20 U/L (15-37); Albumin 3.7 g/dL (3.4-5.0); Alkaline Phosphatase 63 U/L (46-116); Anion Gap 10.5 mmol/L (3-11); BUN 10 mg/dL (7-18); Bilirubin, Total 0.51 mg/dL (0.2-1.0); CO2 24.5 mmol/L (21.0-32.0); CREATININE 0.6 mg/dL (0.55-1.02); Chloride 103 mmol/L (98-107); Glucose 87 mg/dL (74-106); Magnesium 1.8 mg/dL (1.8-2.4); Potassium 3.4 mmol/L (3.5-5.1); Sodium 138 mmol/L (136-145); Total Protein 7.3 g/dL (6.4-8.2)
[2023-10-11] MEDS: Normal Saline 1,000 ML 1000 ML IV (15:59)
[2023-10-11 16:06] LABS: Troponin I < 50 ng/L (< or =60)
[2023-10-11 16:13] LABS: D-Dimer 305 ng/mlFEU (<500)
[2023-10-11 16:35] LABS: Bilirubin Negative (Negative); Blood Negative (Negative); Clarity Cloudy (Clear); Glucose Negative (Negative); Ketones Trace mg/dL (Negative); Leukocyte Esterase Small (Negative); Nitrite Negative (Negative); pH 6.5 (5-8)
[2023-10-11 16:45] LABS: Bacteria Rare HPF (Negative); C & S Indicated? No; Crystals Many Amorphous HPF (Negative); Epithelial Cells Many HPF (Negative); Mucus Negative (Negative); Other Cells Rare Transitional (Negative); RBC 0-2 HPF (0-2)
[2023-10-11] MEDS: MacroBID 100 MG CAP PO (17:17)
== END 2023-10-11 17:24 | disposition home or self-care (01) ==
PROVIDERS: Emergency Provider Emergency Medicine; PCP Family Medicine
DX: R06.02 Shortness of breath (principal); R11.2 Nausea with vomiting, unspecified; R82.71 Bacteriuria; O21.0 Mild hyperemesis gravidarum; Z3A.12 12 weeks gestation of pregnancy
CPT/HCPCS: 36415; 80053; 83690; 93005; 94640; 96361; 96374; 99284; 81003; 81015; 83735; 84484; 85025; 85379; 87086; 93010; 99283; J2765; J7613

== ENCOUNTER 2023-10-13 20:27 | Observation (INO) | payer MEDICAID, SELFPAY ==
[2023-10-13] VITALS (32 sets, daily range): BP systolic 105–141; BP diastolic 47–81; PULSE 75–132; RESP 9–46; TEMP 36.4; O2SAT 95–100
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
[2023-10-13] MEDS: Normal Saline 1,000 ML 1000 ML IV (21:30)
[2023-10-13] MEDS: diphenhydrAMINE 50 MG/ML VIAL 25 MG IVP (21:30)
[2023-10-13] MEDS: Pantoprazole 40 MG VIAL IVP (21:30)
[2023-10-13] MEDS: Ondansetron 4 MG/2 ML VIAL IVP (21:30)
[2023-10-13 21:31] LABS: Abs Immature Grans 0.03 10^3/uL (0.0-0.06); Absolute Basophil Count 0.03 10^3/uL (0.0-0.2); Absolute Eosinophil Count 0.03 10^3/uL (0.0-0.7); Absolute Lymphocyte Count 1.62 10^3/uL (1.2-3.4); Absolute Monocyte Count 0.65 10^3/uL (0.1-0.8); Absolute Neutrophil Count 7.94 10^3/uL (1.2-6.7); Basophils % 0.3 %; Eosinophils % 0.3 %; HCT 38.8 % (36.0-46.0); HGB 13.3 g/dL (11.2-15.7); Immature Grans % 0.3 %; Lymphocytes % 15.7 %; MCH 28.1 pg (27.0-33.0); MCHC 34.3 % (32.0-36.0); MCV 82 fL (80-95); MPV 9.3 fL (8.0-11.0); Monocytes % 6.3 %; Neutrophils % 77.1 %; Platelet Count 273 10^3/uL (130-400); RBC 4.73 10^6/uL (3.93-5.22); RDW 12.3 % (11.7-14.6); RDW-SD 37.2 fL
[2023-10-13 21:37] LABS: Bilirubin Negative (Negative); Blood Trace-intact (Negative); Clarity Sl Cloudy (Clear); Glucose Negative (Negative); Ketones >=160 mg/dL (Negative); Leukocyte Esterase Large (Negative); Nitrite Negative (Negative); Specific Gravity >= 1.030 (1.005-1.025); Urobilinogen 0.2 mg/dL (Up to 0.2)
[2023-10-13 21:46] LABS: Bacteria Negative HPF (Negative); C & S Indicated? No/Sq. Contamination; Casts Negative LPF (Negative); Crystals Negative HPF (Negative); Epithelial Cells Moderate HPF (Negative); Mucus Negative (Negative); RBC 0-2 HPF (0-2)
[2023-10-13 22:11] LABS: ALT 38 U/L (14-59); AST 17 U/L (15-37); Albumin 4.1 g/dL (3.4-5.0); Alkaline Phosphatase 69 U/L (46-116); BUN 10 mg/dL (7-18); CREATININE 0.7 mg/dL (0.55-1.02); Calcium 9.5 mg/dL (8.5-10.1); Chloride 99 mmol/L (98-107); Glucose 95 mg/dL (74-106); Potassium 3.3 mmol/L (3.5-5.1); Sodium 136 mmol/L (136-145)
[2023-10-13] MEDS: DEXTROSE 5%-0.9% SALINE 1,000 ML 125 ML IV (22:11)
[2023-10-13 22:13] LABS: HCG Quant, Pregnancy 208188 mIU/mL (1-3)
[2023-10-13 22:25] LABS: PTT Activated 23.3 sec (23.6-32.8)
[2023-10-13 22:34] LABS: INR 1.1 (0.9-1.1)
[2023-10-13 22:37] LABS: BE (Venous) -7 mmol/L (-2-3); HCO3 (Venous) 17 mmol/L (23-28); O2 Sat (Venous) 95 %; TCO2 (Venous) 16 mmol/L (24-29); pCO2 (Venous) 27 mmHg (41-51); pH (Venous) 7.42 (7.31-7.41); pO2 (Venous) 71 mmHg
[2023-10-13 23:42] LABS: Magnesium 1.7 mg/dL (1.8-2.4)
[2023-10-14] VITALS (14 sets, daily range): BP systolic 92–110; BP diastolic 52–64; PULSE 68–92; RESP 10–26; TEMP 36.4–36.8; O2SAT 98–99
--- NOTE | 2023-10-14 | DI.US_ITS ---
Exam(s) US OB 1ST TRIMESTER EXAM: US OB 1ST TRIMESTER CLINICAL HISTORY: confirm viability and growth from initial OB u/s a. TECHNIQUE: First trimester obstetrical ultrasound was performed. COMPARISON: US US OB 1ST TRIMESTER from 09/11/2023 FINDINGS: Today's study reveals a single intrauterine gestational sac which contains a single viable fetus whic h exhibits heart rate of 159 bpm. [place]-rump length measurement is 5.3 mm, corresponding to 12 weeks gestational age. There is no evidence of subchorionic hemorrhage. Maternal ovaries: Both not able to be visualized There is no fluid in the cul-de-sac and adnexal regions. IMPRESSION:: Single viable intrauterine gestation which is approximately 12 gestational age by crown rump length measurement, implying TIMMY of 04/27/2024 There is no evidence of subchorionic hemorrhage. DATA REPOSITORY:
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
[2023-10-14] MEDS: Lactated Ringers 1,000 ML 150 ML IV ×2 (00:45→07:41)
[2023-10-14 01:04] LABS: TSH (W/Ref FT4) 0.01 uIU/mL (0.36-3.74)
[2023-10-14 01:05] LABS: Lab Add On Test DONE
[2023-10-14 01:21] LABS: FREE T4 3.33 ng/dL (0.76-1.46)
--- NOTE | 2023-10-14 07:43 | W.PM.PROGNOT ---
Date of Service Date of service: 10/14/23 Time of Service: 07:43 Assessment and Plan Assessment and plan (1) Hyperemesis gravidarum: Status: Acute Assessment and plan: Nausea persist but emesis has stopped. Will continue on current medication regime. Will advance diet today. I have asked care management to speak to the patient regarding her current living situation and community support. I have ordered a OB ultrasound which I am hoping will be performed today. (2) Inflammatory bowel disease: Status: Acute Assessment and plan: Patient did confirm that she had a colonoscopy and has been diagnosed with Crohn's. She denies any current flare. (3) Low TSH level: Status: Acute Assessment and plan: Low TSH may be artifactual secondary to . Subjective Subjective Interval history since last seen: Nausea persist but no emesis. Continues to report abdominal pain Exam Narrative Exam Narrative: Patient was admitted early in the morning of 10/14/2023 with hyperemesis at 11 W3D EGA. She had slightly decreased potassium and magnesium. An add-on TSH was notable for being low which may be an artifact of . No emesis during the night. She is interested in trying some food. Const General: no acute distress Nutritional Appearance: average body habitus Orientation: alert, awake and oriented x3 GI Inspection: normal to inspection Palpation: soft and tender (Patient points to suprapubic area when describing pain) with no rebound tenderness Rectal Exam - female: deferred Skin General skin exam: no rashes or lesions noted Neuro General: patient alert, patient awake and patient oriented x3 Extrem General: normal to inspection Psych Appearance: grossly normal Mental Status: mental status grossly normal Speech and Movement: speech and movement normal Mood: congruent mood Affect: blunted Attitude: cooperative Thought Process: normal Thought Content: normal Insight: insight good Judgment: judgment good Objective Last Vital Signs Temp 97.9 F 10/14/23 04:00 Pulse 79 10/14/23 04:00 Resp 17 10/14/23 04:00 BP 92/53 L 10/14/23 04:00 Pulse Ox 99 10/14/23 04:00 Laboratory Results - last 24 hr 10/13/23 10/13/23 10/13/23 21:00 21:15 22:31 WBC 10.30 RBC 4.73 Hgb 13.3 Hct 38.8 MCV 82 MCH 28.1 MCHC 34.3 RDW 12.3 Plt Count 273 MPV 9.3 Immature Gran % 0.3 Neutrophils % 77.1 Lymphocytes % 15.7 Monocytes % 6.3 Eosinophils % 0.3 Basophils % 0.3 Nucleated RBC % 0.0 Absolute Neutrophils 7.94 H Absolute Lymphocytes 1.62 Absolute Monocytes 0.65 Absolute Eosinophils 0.03 Absolute Basophils 0.03 PT 11.0 INR 1.1 APTT 23.3 L VBG pH 7.42 H VBG pCO2 27 L VBG pO2 71 VBG HCO3 17 L VBG Total CO2 16 L VBG O2 Saturation 95 VBG Base Excess -7 L VBG Lactate 1.0 Sodium 136 Potassium 3.3 L Chloride 99 Carbon Dioxide 18.0 L Anion Gap 19.0 H BUN 10 Creatinine 0.7 Est GFR (CKD-EPI 2020) 126.90 Glucose 95 Calcium 9.5 Magnesium 1.7 L Total Bilirubin 0.90 AST 17 ALT 38 Alkaline Phosphatase 69 Total Protein 8.0 Albumin 4.1 TSH 0.01 L Free T4 3.33 H Beta HCG, Quant 210285 H Urine Color Yellow Urine Clarity Sl Cloudy Urine pH 6.0 Ur Specific [place] >= 1.030 H Urine Protein 30 H Urine Ketones >=160 H Urine Blood Trace-intact H Urine Nitrite Negative Urine Bilirubin Negative Urine Urobilinogen 0.2 Ur Leukocyte Esterase Large H Urine RBC 0-2 Urine WBC 5-10 Ur Epithelial Cells Moderate Urine Crystals Negative Urine Bacteria Negative Urine Casts Negative Urine Mucus Negative Ur Culture Indicated? No/Sq. Contamination Urine Glucose Negative Add-On Test Request ABO/Rh O Negative Antibody Screen NEGATIVE 10/14/23 00:35 WBC RBC Hgb Hct MCV MCH MCHC RDW Plt Count MPV Immature Gran % Neutrophils % Lymphocytes % Monocytes % Eosinophils % Basophils % Nucleated RBC % Absolute Neutrophils Absolute Lymphocytes Absolute Monocytes Absolute Eosinophils Absolute Basophils PT INR APTT VBG pH VBG pCO2 VBG pO2 VBG HCO3 VBG Total CO2 VBG O2 Saturation VBG Base Excess VBG Lactate Sodium Potassium Chloride Carbon Dioxide Anion Gap BUN Creatinine Est GFR (CKD-EPI 2020) Glucose Calcium Magnesium Total Bilirubin AST ALT Alkaline Phosphatase Total Protein Albumin TSH Free T4 Beta HCG, Quant Urine Color Urine Clarity Urine pH Ur Specific [place] Urine Protein Urine Ketones Urine Blood Urine Nitrite Urine Bilirubin Urine Urobilinogen Ur Leukocyte Esterase Urine RBC Urine WBC Ur Epithelial Cells Urine Crystals Urine Bacteria Urine Casts Urine Mucus Ur Culture Indicated? Urine Glucose Add-On Test Request DONE ABO/Rh Antibody Screen Time Spent with Patient Time Spent with Patient: <25 minutes Time was spent: preparing to see the patient(eg.review tests), obtaining and/or reviewing separately otained hiistory, indepentently interpreting results and counseling the patient
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
== END 2023-10-14 10:22 | disposition home or self-care (01) ==
LOC: ER 10-14 00:38 → OBS 10-14 01:08
PROVIDERS: Admitting Provider Obstetrics & Gynecology Gynecology; Emergency Provider Emergency Medicine; PCP Family Medicine; Visit Provider Obstetrics & Gynecology Gynecology
DX: O21.0 Mild hyperemesis gravidarum (principal); Z59.02 Unsheltered homelessness; O99.611 Diseases of the digestive system complicating pregnancy, first trimester; Z3A.11 11 weeks gestation of pregnancy; K50.90 Crohn's disease, unspecified, without complications; O99.341 Other mental disorders complicating pregnancy, first trimester; F41.8 Other specified anxiety disorders; O99.511 Diseases of the respiratory system complicating pregnancy, first trimester; O36.0910 Maternal care for other rhesus isoimmunization, first trimester, not applicable or unspecified; O99.331 Smoking (tobacco) complicating pregnancy, first trimester; F17.290 Nicotine dependence, other tobacco product, uncomplicated; J45.909 Unspecified asthma, uncomplicated; E16.2 Hypoglycemia, unspecified; O26.891 Other specified pregnancy related conditions, first trimester; E07.89 Other specified disorders of thyroid
CPT/HCPCS: 80053; 82805; 86850; 86900; 86901; 96360; 96361; 96374; 96375; 99285; 76801; 81003; 81015; 83605; 83735; 84439; 84443; 84702; 85025; 85610; 85730; G0378; J1200; J2405; J2470; J3415; J7042

== ENCOUNTER 2023-11-13 06:26 | Emergency (ER) | payer MEDICAID, SELFPAY ==
[2023-11-13 06:29] VITALS: BP 129/70; PULSE 110; RESP 18; TEMP 36.9; O2SAT 98
--- NOTE | 2023-11-13 06:30 | DI.RAD_ITS ---
Exam(s) XR SHOULDER RT COMPLETE 2+V EXAM: XR SHOULDER RT COMPLETE 2+V CLINICAL HISTORY: fall, right shoulder pain. TECHNIQUE: 2D digital imaging was performed. Five views. COMPARISON: No exams were available for comparison FINDINGS: BONES: No acute fracture is present. No bony destructive lesion is seen. JOINTS: No dislocation present. SOFT TISSUE: Normal. IMPRESSION: Unremarkable radiographs of the right shoulder. DATA REPOSITORY: RADIATION DOSE DELIVERED:
--- NOTE | 2023-11-13 06:30 | DI.RAD_ITS ---
Exam(s) XR ELBOW RT COMPLETE EXAM: XR ELBOW RT COMPLETE CLINICAL HISTORY: fall, right elbow pain. TECHNIQUE: 2D digital imaging was performed. Three views. COMPARISON: CR,XR XR SHOULDER RT COMPLETE 2+V from 11/13/2023 FINDINGS: BONES: No acute fracture is present. No bony destructive lesion is seen. JOINTS: The elbow is normally aligned. No joint effusion is seen. SOFT TISSUE: Normal. IMPRESSION: Unremarkable radiographs of the right elbow. DATA REPOSITORY: RADIATION DOSE DELIVERED:
[2023-11-13] MEDS: Acetaminophen 500 MG TAB 1000 MG PO (06:47)
--- NOTE | 2023-11-13 06:51 | NUR.NOTE ---
Nursing Note: Gave report and hand off to Bárbara Hutton RN.
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
[2023-11-13] MEDS: Lidocaine 5% Patch 1 PATCH TP (07:30)
--- NOTE | 2023-11-13 08:16 | DI.VRAD_ITS ---
PROCEDURE INFORMATION: Exam: XR Right Shoulder Exam date and time: 11/13/2023 7:03 AM Age: 18 years old Clinical indication: Injury or trauma; Other: Fall, right shoulder pain TECHNIQUE: Imaging protocol: Radiologic exam of the right shoulder. Views: 2 or more views. COMPARISON: CT CHEST PE CTA 04/01/2022 3:38 PM FINDINGS: Bones/joints: Normal. Soft tissues: Normal. IMPRESSION: No evidence of acute fracture or dislocation of the shoulder. Dictated and Authenticated by: Alcira Feliciano MD. Ordering:NICKO Lindsey MD
--- NOTE | 2023-11-13 08:16 | DI.VRAD_ITS ---
PROCEDURE INFORMATION: Exam: XR Right Elbow Exam date and time: 11/13/2023 7:09 AM Age: 18 years old Clinical indication: Injury or trauma; Patient HX: Fall, right elbow pain TECHNIQUE: Imaging protocol: Radiologic exam of the right elbow. Views: 3 or more views. COMPARISON: CR XR SHOULDER RT COMPLETE 2+V 11/13/2023 7:03 AM FINDINGS: Bones/joints: No acute or suspicious osseous abnormalities. No articular abnormalities. No joint effusion. Soft tissues: Normal. IMPRESSION: No evidence of acute osseous injury. Dictated and Authenticated by: Alcira Feliciano MD. Ordering:NICKO Lindsey MD
--- NOTE | 2023-11-13 08:31 | W.EDPROG ---
Date of service: 11/13/23 Time of Service: 08:31 Medical Decision Making Patient's elbow and shoulder x-ray negative. Patient stable has no new pain elsewhere. Discussed results with her and she will follow-up with her PCP and REGULATORY COORDINATOR as needed and return precautions given. She has no abdominal pain or discomfort at this time. Quality:[facility] Health Related Social Needs: No Data to Display Sign Out Sign Out Data: Sign Out Comment: , fall onto right shoulder and elbow. Suspect sprain. Lidoderm prescription sent. Follow-up on imaging Last updated by César Murry DO at 11/13/23 07:29 Discharge Plan Disposition Patient Disposition: Home Condition: Stable Discharge Details Clinical Impression: Sprain of right shoulder, Contusion of right shoulder, Contusion of elbow, right Primary Care Provider: Mayank Sevilla ED Provider: Raúl Enriquez [place] Meds and New Rx's Prescriptions: New lidocaine [Lidoderm] 5 % adhesive patch,medicated 1 patch Topical Q24H Qty: 15 0RF Continued Se-Emmy 19 Chewable 29 mg iron- 1 mg tablet,chewable 1 tab PO DAILY Qty: 90 5RF ondansetron HCl 4 mg tablet 4 mg PO Q6H PRN (Reason: nausea and vomiting) Qty: 60 4RF No Action escitalopram oxalate 10 mg tablet 10 mg PO DAILY Patient Comments: TAKE 1 TABLET BY MOUTH ONCE DAILY cyclobenzaprine 10 mg tablet 10 mg PO TID PRN (Reason: muscle spasm) Qty: 20 0RF Discharge Instructions Instructions: Shoulder Sprain Additional Instructions: At this time your x-ray shows no evidence of fracture for your shoulder elbow. I suspect these areas are notably contused. They can take 3 to 6 weeks for the bursa swelling and joint swelling to go down. Please ice the area frequently. Apply the Lidoderm patches to help with pain. This prescription has been sent to your pharmacy on file. Please take Tylenol as needed for pain. If you notice any worsening of your symptoms, or any new symptoms such as vomiting, diarrhea, fever, chills, shortness of breath, chest pain, numbness, weakness, or fainting , please return immediately to the emergency department for reevaluation. Please follow up with your primary care provider as soon as possible for reassessment and reevaluation. As always, it was a pleasure participating in your medical care today. Referrals: Mayank Sevilla [Primary Care Provider] -
[2023-11-13 08:47] VITALS: BP 118/62; PULSE 87; RESP 16; TEMP 36.6; O2SAT 99
--- NOTE | 2023-11-16 10:32 | NUR.NOTE ---
Access chart to print the order for the sling, to fax to [facility] billing. Nursing Note:
== END 2023-11-13 08:47 | disposition home or self-care (01) ==
PROVIDERS: Emergency Provider Emergency Medicine; PCP Family Medicine
DX: O26.892 Other specified pregnancy related conditions, second trimester (principal); S43.401A Unspecified sprain of right shoulder joint, initial encounter; S40.011A Contusion of right shoulder, initial encounter; S50.01XA Contusion of right elbow, initial encounter; O99.332 Smoking (tobacco) complicating pregnancy, second trimester; F17.210 Nicotine dependence, cigarettes, uncomplicated; W01.0XXA Fall on same level from slipping, tripping and stumbling without subsequent striking against object, initial encounter; Y93.01 Activity, walking, marching and hiking; Y92.018 Other place in single-family (private) house as the place of occurrence of the external cause
CPT/HCPCS: 00123; 99283; 73030; 73080

== ENCOUNTER 2023-11-27 01:21 | Emergency (ER) | payer MEDICAID, SELFPAY ==
[2023-11-27 01:25] VITALS: BP 132/70; PULSE 95; RESP 18; TEMP 36.6; O2SAT 98
[2023-11-27 01:52] LABS: Bilirubin Negative (Negative); Blood Trace-intact (Negative); Clarity Clear (Clear); Glucose Negative (Negative); Ketones Negative (Negative); Leukocyte Esterase Large (Negative); Nitrite Negative (Negative); Specific Gravity 1.015 (1.005-1.025)
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
[2023-11-27 02:06] LABS: Bacteria Rare HPF (Negative); Epithelial Cells Rare HPF (Negative)
[2023-11-27 02:07] LABS: C & S Indicated? Yes; Casts Negative LPF (Negative); Crystals Negative HPF (Negative); Mucus Negative (Negative)
[2023-11-27 02:36] LABS: ALT 11 U/L (14-59); AST 11 U/L (15-37); Albumin 3.1 g/dL (3.4-5.0); Alkaline Phosphatase 63 U/L (46-116); Anion Gap 11.9 mmol/L (3-11); BUN 4 mg/dL (7-18); Bilirubin, Total 0.29 mg/dL (0.2-1.0); CO2 22.1 mmol/L (21.0-32.0); CREATININE 0.4 mg/dL (0.55-1.02); Calcium 8.9 mg/dL (8.5-10.1); Chloride 105 mmol/L (98-107); Estimated GFR 145.22 (mL/min/1.73m2); Glucose 89 mg/dL (74-106); Potassium 3.6 mmol/L (3.5-5.1); Sodium 139 mmol/L (136-145); Total Protein 6.7 g/dL (6.4-8.2)
[2023-11-27] MEDS: Cefpodoxime 200 MG TAB PO (02:49)
[2023-11-27] MEDS: ACETAMINOPHEN 1,000 MG/100 ML BTL 400 MG IVPB (02:53)
[2023-11-27 02:54] LABS: Abs Immature Grans 0.04 10^3/uL (0.0-0.06); Absolute Basophil Count 0.04 10^3/uL (0.0-0.2); Absolute Eosinophil Count 0.23 10^3/uL (0.0-0.7); Absolute Lymphocyte Count 2.48 10^3/uL (1.2-3.4); Absolute Monocyte Count 0.69 10^3/uL (0.1-0.8); Basophils % 0.4 %; Eosinophils % 2.2 %; HCT 36.1 % (36.0-46.0); Immature Grans % 0.4 %; Lymphocytes % 24.1 %; MCH 28.4 pg (27.0-33.0); MCHC 33.2 % (32.0-36.0); MCV 86 fL (80-95); MPV 9.6 fL (8.0-11.0); Monocytes % 6.7 %; Neutrophils % 66.2 %; Platelet Count 260 10^3/uL (130-400); RBC 4.22 10^6/uL (3.93-5.22); RDW 13.1 % (11.7-14.6); RDW-SD 40.1 fL; WBC 10.28 10^3/uL (4.4-10.8)
--- NOTE | 2023-11-27 03:15 | DI.US_ITS ---
Exam(s) US OB CHIKIS WEIGHT EXAM: US OB CHIKIS WEIGHT CLINICAL HISTORY: lower abdominal pain. TECHNIQUE: Transabdominal obstetrical ultrasound performed. COMPARISON: US US OB 1ST TRIMESTER from 10/14/2023 FINDINGS: Number of fetuses: 1 position: CEPHALIC Placental location: There is a grade 1 posterior placenta. The placental tip is 5.4 cm from the inte rnal os. No evidence of previa. BIOMETRIC DATA: BPD: 3.91cm, 17weeks 6days HC: 14.49cm, 17weeks 5days AC: 11.67cm, 17weeks 3days FL: 2.42cm, 17weeks 2days EFW: 193.66g, 0.43lb, 26.7% Composite Age: 17weeks 4days TIMMY: 05/02/2024 Heart Rate: 150bpm Amniotic fluid index: . Visually, amount of fluid is within normal limits. The ovaries were not visualized on this examination. IMPRESSION: 1. Single live intrauterine gestation as above. 2. Estimated weight is 194gms. This is the 27th percentile. 3. Amniotic fluid index is visually within normal limits. DATA REPOSITORY:
--- NOTE | 2023-11-27 07:24 | ED.PROG_ITS ---
Date of service: 11/27/23 Time of Service: 07:24 Medical Decision Making Care assumed from outgoing provider. Patient is a 18-year-old female presenting at 18 weeks with lower abdominal pain. Found to have a urinary tract infection. Disposition pending ultrasound which will be completed this morning Ultrasound this morning is unremarkable. Prescriptions and discharge instructions provided by Dr. Pollock. Updated patient on results. Discharged and encouraged to follow closely with OB. Quality:[facility] Health Related Social Needs: No Data to Display Sign Out Sign Out Data: Sign Out Comment: 18yo F 18w gestation with lower abdominal pain. Rh neg, no bleeding. UTI and yeast infection. Pending US. Last updated by Kimberly Pollock MD at 11/27/23 07:13 Discharge Plan Disposition Patient Disposition: Home Condition: Stable Discharge Details Clinical Impression: Abdominal pain affecting , Urinary tract infection, Vaginal yeast infection Primary Care Provider: Mayank Sevilla ED Provider: Sharifa Jimenez Home Meds and New Rx's Prescriptions: New cefpodoxime 100 mg tablet 100 mg PO Q12H Qty: 14 0RF Rx Instructions: must administer with a meal/food miconazole nitrate [Miconazole-7] 100 mg suppository 100 mg vaginal QHS 7 Days Qty: 7 0RF Continued ondansetron 4 mg tablet,disintegrating 4 mg PO Q6H PRN (Reason: nausea and vomiting) Qty: 30 5RF Discontinued Se- 19 Chewable 29 mg iron- 1 mg tablet,chewable 1 tab PO DAILY Qty: 90 5RF escitalopram oxalate 10 mg tablet 10 mg PO DAILY Patient Comments: TAKE 1 TABLET BY MOUTH ONCE DAILY cyclobenzaprine 10 mg tablet 10 mg PO TID PRN (Reason: muscle spasm) Qty: 20 0RF Discharge Instructions Instructions: Vulvovaginal yeast infection, Urinary Tract Infection, Adult ED Additional Instructions: Antibiotic twice a day for the next 7 days for urinary tract infection. Miconazole intravaginal once a day for the next 7 days Tylenol over the counter as needed for pain; follow the directions on the bottle. Call your SSN/SSBN WEAPONS EQUIPMENT OPERATOR today to schedule an appointment for within the next 3 days to followup on your visit here. Return to the emergency department for new or worsening symptoms including new/different/worse pain, vaginal bleeding, flank pain, feeling like you are going to pass out, or if you have any other concerns.
[2023-11-27 07:31] VITALS: BP 118/72; PULSE 87; RESP 16; O2SAT 100
[2023-11-27 09:27] VITALS: BP 107/68; PULSE 78; RESP 16; TEMP 36.6; O2SAT 100
[2023-11-29 14:39] LABS: Chlamydia Result Invalid (Negative); GC Result Invalid (Negative)
== END 2023-11-27 09:27 | disposition home or self-care (01) ==
PROVIDERS: Student in an Organized Health Care Education/Training Program; Emergency Provider Emergency Medicine; PCP Family Medicine
DX: O26.891 Other specified pregnancy related conditions, first trimester (principal); R10.30 Lower abdominal pain, unspecified; N39.0 Urinary tract infection, site not specified; B37.31 Acute candidiasis of vulva and vagina
CPT/HCPCS: 00123; 76816; 80053; 86850; 86900; 86901; 87491; 87591; 96374; 99284; 81003; 81015; 85025; 87086; 87480; 87510; 87660; 99283; J0131

== ENCOUNTER 2023-12-09 02:12 | Outpatient (CLI) | payer MEDICAID, SELFPAY ==
--- NOTE | 2023-12-09 07:30 | DI.US_ITS ---
Exam(s) US OB 2-3 TRIMESTER EXAM: US OB 2-3 TRIMESTER CLINICAL HISTORY: anatomy survey @ 18-19 wks,z34.90. TECHNIQUE: Transabdominal obstetrical ultrasound was performed. COMPARISON: US US OB CHIKIS WEIGHT from 11/27/2023 FINDINGS: There is a single viable intrauterine gestation with cardiac activity identified-147 bpm. Amniotic fluid: There is a normal amount of amniotic fluid. Placental location: The placenta is anterior grade 1,with no evidence of placenta previa. ANATOMY: A 3 vessel umbilical cord is seen. A four-chamber cardiac view was obtained. Right and left ventricular outflow tracts were imaged. There are no obvious abnormalities of the spinal column evident. There is no obvious abnormal ity of the anterior abdominal wall. stomach and urinary bladder are identified and there is no evidence of hydronephrosis. No abnormalities of the upper lip region are identified. No evidence of choroid plexus cysts i n the brain. Dating parameters place this at approximately 19 weeks and 2 days gestational age. BPD measures 19 weeks and 2 days HC measures 19 weeks and 3 days AC measures 19 weeks and 1 day FL measures 19 weeks and 1 day Estimated weight is 275 gm-0 pounds, 10 ounces Fetus is at the 29th percentile on the Hadlock scale. IMPRESSION:: Single viable intrauterine gestation which is approximately 19 weeks and 2 days gestati onal age, implying an TIMMY of 05/02/2024. There are no obvious anomalies evident on today's study. The placenta is anterior with no evidence of placenta previa. There is a normal amount of amniotic fluid. DATA REPOSITORY:
== END 2023-12-09 02:32 ==
LOC: DI 02:12
PROVIDERS: PCP Family Medicine; Visit Provider Advanced Practice Midwife
DX: Z34.92 Encounter for supervision of normal pregnancy, unspecified, second trimester (principal); Z3A.19 19 weeks gestation of pregnancy
CPT/HCPCS: 76805

== ENCOUNTER 2024-01-06 10:08 | Outpatient (CLI) | payer MEDICAID, SELFPAY ==
[2024-01-06 10:48] VITALS: BP 110/62; PULSE 72; TEMP 36.7
[2024-01-06 10:52] VITALS: BP 110/62; PULSE 72
[2024-01-06] MEDS: Docusate Sodium 100 MG CAP PO (11:33)
--- NOTE | 2024-01-06 12:17 | W.OBNST ---
Date of service: 01/06/24 Time of Service: 12:18 NST Evaluation Reason for NST Reasons for Nonstress Test: OTHER, SEE COMMENT Reason for NST Other: lower abdominal pain Gestational Age Gestational Age in Weeks and Days: 23 Weeks and 3Days Test and Monitor Explained Test/Monitor Explained: Test Explained, Monitor Explained and Patient Verbalized Understanding Vital Signs Blood Pressure: 110/62 Pulse: 72 Temperature: 98.1 F Urine Results Urine Protein: Negative Urine Ketones: Negative Urine Glucose: Negative Urine Blood: Negative NST Information Date on Monitor: 01/06/24 Time on Monitor: 10:51 Date off Monitor: 01/06/24 Time off Monitor: 11:23 Total Time on Monitor: 32 NST Interventions: PO Hydration Contraction Frequency: 0 NST Evaluation Patient States Movement: Present FHR Baseline: 145 Variability: Moderate 6-25 bpm Accelerations: 10x10 Decelerations: None NST Results: Reactive Note Ultrasound Done: N/A. NST Note Note: cvx closed/thick Nml appearing vaginal mucous Benign abdominal exam NST Reviewed and Verified by: Aneta Du
[2024-01-06 12:19] VITALS: BP 110/62; PULSE 72; TEMP 36.7
== END 2024-01-06 11:40 ==
LOC: BCD 10:11 → OBS 10:18
PROVIDERS: PCP Family Medicine; Visit Provider Advanced Practice Midwife
DX: O26.892 Other specified pregnancy related conditions, second trimester (principal); Z3A.23 23 weeks gestation of pregnancy; R10.30 Lower abdominal pain, unspecified
CPT/HCPCS: 59025; 87086

== ENCOUNTER 2024-01-20 16:16 | Outpatient (REF) | payer MEDICAID, SELFPAY | END 2024-01-20 16:17 | disposition home or self-care (01) | LOC: LBN 16:16 | PROVIDERS: PCP Family Medicine; Visit Provider Advanced Practice Midwife | DX: R10.2 Pelvic and perineal pain; O99.891 Other specified diseases and conditions complicating pregnancy; M54.9 Dorsalgia, unspecified; Z3A.25 25 weeks gestation of pregnancy | CPT/HCPCS: 87086 ==

== ENCOUNTER 2024-01-27 12:43 | Outpatient (CLI) | payer MEDICAID, SELFPAY ==
[2024-01-27 13:29] VITALS: BP 116/61; PULSE 75
[2024-01-27 13:35] VITALS: BP 116/61; PULSE 77; TEMP 36.7
[2024-01-27 14:42] VITALS: BP 116/61; PULSE 77; TEMP 36.7
--- NOTE | 2024-01-27 15:44 | W.OBNST ---
Date of service: 01/27/24 Time of Service: 15:44 NST Evaluation Reason for NST Reasons for Nonstress Test: OTHER, SEE COMMENT Reason for NST Other: abdominal pain Gestational Age Gestational Age in Weeks and Days: 26 Weeks and 3Days Test and Monitor Explained Test/Monitor Explained: Test Explained, Monitor Explained and Patient Verbalized Understanding Vital Signs Blood Pressure: 116/61 Pulse: 77 Temperature: 98.1 F NST Information Date on Monitor: 01/27/24 Time on Monitor: 13:29 Date off Monitor: 01/27/24 Time off Monitor: 14:40 Total Time on Monitor: 71 NST Interventions: PO Hydration Contraction Frequency: 0 NST Evaluation Patient States Movement: Present FHR Baseline: 140 Variability: Moderate 6-25 bpm Accelerations: 10x10 Decelerations: None NST Results: Reactive Note Ultrasound Done: N/A. NST Note Note: No contractions, cvx closed, thick, no bleeding in evidence SSE reveals thick chunky green and yellow vaginal discharge, GC/CT and VPS sent presumptively treat for luisito NST Reviewed and Verified by: Aneta Du
[2024-01-27 15:46] VITALS: BP 116/61; PULSE 77; TEMP 36.7
[2024-01-29 11:52] LABS: Chlamydia Result Negative (Negative); GC Result Negative (Negative)
== END 2024-01-27 14:44 ==
LOC: BCD 12:44 → OBS 12:55
PROVIDERS: PCP Family Medicine; Visit Provider Advanced Practice Midwife
DX: O26.892 Other specified pregnancy related conditions, second trimester (principal); N76.0 Acute vaginitis; Z3A.26 26 weeks gestation of pregnancy
CPT/HCPCS: 59025; 87491; 87591; 87086; 87480; 87510; 87660

== ENCOUNTER 2024-01-29 21:16 | Outpatient (CLI) | payer MEDICAID, SELFPAY ==
[2024-01-29] MEDS: Ondansetron O.D.T. 4 MG TABEF 8 MG PO (22:15)
[2024-01-30 00:15] VITALS: BP 108/59; PULSE 80; TEMP 36.8
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
[2024-01-30 00:48] VITALS: BP 108/59; PULSE 80; TEMP 36.8
== END 2024-01-30 00:05 | disposition home health service (06) ==
LOC: BCD 21:22 → OBS 21:43
PROVIDERS: PCP Family Medicine; Visit Provider Obstetrics & Gynecology
DX: O21.2 Late vomiting of pregnancy (principal); Z3A.26 26 weeks gestation of pregnancy
CPT/HCPCS: 59025; G0378

== ENCOUNTER 2024-02-04 00:55 | Outpatient (CLI) | payer MEDICAID, SELFPAY ==
--- NOTE | 2024-02-04 06:15 | DI.US_ITS ---
Exam(s) US OB CHIKIS WEIGHT EXAM: US OB CHIKIS WEIGHT CLINICAL HISTORY: interval growth,poor wt gain,pelvic pain,O26.899. TECHNIQUE: Transabdominal obstetrical ultrasound was performed. COMPARISON: US US OB 2-3 TRIMESTER from 12/09/2023 FINDINGS: There is a single viable intrauterine gestation with cardiac activity identified-141 bpm The fetus is presently in breech position . Amniotic fluid: There is a normal amount of amniotic fluid with an CHIKIS of 12.2cm. Placental location: The placenta is posterior fundal grade 1,with no evidence of placenta previa. Dating parameters place this at approximately 27 weeks and 1 day gestational age, implying TIMMY of 05/04/2024. BPD measures 27 weeks and 0 days HC measures 27 weeks and 3 days AC measures 27 weeks and 5 days FL measures 26 weeks and 3 days Estimated weight is 1035 gram gm-pounds 5 ounces Fetus is at the 23rd percentile on the Hadlock scale. IMPRESSION:: Viable intrauterine gestation, as described above. DATA REPOSITORY:
== END 2024-02-04 01:15 ==
LOC: DI 00:55
PROVIDERS: PCP Family Medicine; Visit Provider Advanced Practice Midwife
DX: O26.12 Low weight gain in pregnancy, second trimester; Z3A.27 27 weeks gestation of pregnancy
CPT/HCPCS: 76816

== ENCOUNTER 2024-02-04 02:02 | Outpatient (CLI) | payer MEDICAID, SELFPAY ==
[2024-02-04 10:09] LABS: HCT 31.8 % (36.0-46.0); HGB 10.6 g/dL (11.2-15.7); MCH 29.1 pg (27.0-33.0); MCHC 33.3 % (32.0-36.0); MCV 87 fL (80-95); MPV 8.9 fL (8.0-11.0); Platelet Count 227 10^3/uL (130-400); RBC 3.64 10^6/uL (3.93-5.22); RDW 13.7 % (11.7-14.6); RDW-SD 43.5 fL; WBC 8.91 10^3/uL (4.4-10.8)
[2024-02-04 10:22] LABS: Glucose,1 Hr (Glucola) 128 mg/dL (80-140)
[2024-02-04 10:36] LABS: TSH (W/Ref FT4) 0.01 uIU/mL (0.36-3.74)
[2024-02-04 10:54] LABS: FREE T4 1.28 ng/dL (0.76-1.46)
== END 2024-02-04 02:03 | disposition home or self-care (01) ==
LOC: LBO 02:02
PROVIDERS: PCP Family Medicine; Visit Provider Advanced Practice Midwife
DX: Z34.92 Encounter for supervision of normal pregnancy, unspecified, second trimester (principal); O26.892 Other specified pregnancy related conditions, second trimester; Z67.91 Unspecified blood type, Rh negative; R79.89 Other specified abnormal findings of blood chemistry
CPT/HCPCS: 36415; 82950; 85027; 86850; 90384; 84439; 84443

== ENCOUNTER 2024-02-04 09:38 | Outpatient (REF) | payer MEDICAID, SELFPAY ==
[2024-02-04 11:08] LABS: *AMPHETAMINES SCREEN URINE Negative (Negative); *BARBITURATES SCREEN URINE Negative (Negative); *BENZODIAZEPINES SCREEN URINE Negative (Negative); Cannabinoids THC Positive (Negative); Cocaine Screen,Urine Negative (Negative); METHADONE URINE SCREEN Negative (Negative); OPIATES URINE SCREEN Negative (Negative)
[2024-02-04 11:09] LABS: Tricyclic Antidepressants Negative (Negative)
[2024-02-05 11:42] LABS: Fentanyl Scr w/Rfx Confirm Negative ng/mL (<1)
[2024-02-11 09:06] LABS: Buprenorphine Negative ng/mL (Cutoff: 5.0); Norbuprenorphine Negative ng/mL (Cutoff: 2.5)
== END 2024-02-04 09:39 | disposition home or self-care (01) ==
LOC: LBN 09:38
PROVIDERS: PCP Family Medicine; Visit Provider Advanced Practice Midwife
DX: Z34.92 Encounter for supervision of normal pregnancy, unspecified, second trimester (principal)
CPT/HCPCS: 80307; 80348

== ENCOUNTER 2024-02-07 16:16 | Outpatient (REF) | payer MEDICAID, SELFPAY ==
[2024-02-07 17:00] VITALS: BP 115/65; PULSE 89; TEMP 36.9
[2024-02-07] MEDS: Ondansetron O.D.T. 4 MG TABEF 8 MG PO (17:43)
[2024-02-07] MEDS: Butalbital/Acetaminophen/Caffeine 50/325/40 TAB PO (18:09)
--- NOTE | 2024-02-07 18:25 | W.OBNST ---
Date of service: 02/07/24 Time of Service: 18:25 NST Evaluation Reason for NST Reasons for Nonstress Test: OTHER, SEE COMMENT Reason for NST Other: Headache Gestational Age Gestational Age in Weeks and Days: 28 Weeks and 0Days Test and Monitor Explained Test/Monitor Explained: Test Explained and Monitor Explained Vital Signs Blood Pressure: 115/65 Pulse: 89 Temperature: 98.4 F Urine Results Urine Protein: Negative Urine Ketones: Negative Urine Glucose: Negative Urine Blood: Negative NST Information Date on Monitor: 02/07/24 Time on Monitor: 16:50 Date off Monitor: 02/07/24 Time off Monitor: 17:45 Total Time on Monitor: 55 NST Interventions: PO Hydration Contraction Frequency: rare NST Evaluation Patient States Movement: Present FHR Baseline: 145 Variability: Moderate 6-25 bpm Accelerations: 15x15 Decelerations: None NST Results: Reactive Note Ultrasound Done: N/A. NST Note Note: U/s on 02/04/24 for breech presentation, CHIKIS of 12 and EFW in 23 rd percentile Pt with migraine that has lasted several days, accompanied by nausea, vomiting, light and sound sensitivity, and visual changes. BP is nml, not in labor, urine dip is negative for protein, ketones, infection or dehydration Zofran8 mg ODT given, then Fioricet tabs #2 given PO Plan to discharge to home when feeling better and tolerating oral intake NST Reviewed and Verified by: Aneta Du
[2024-02-07 18:29] VITALS: BP 115/65; PULSE 89; TEMP 36.9
--- NOTE | 2024-02-07 20:26 | NUR.NOTE ---
Nursing Note: Patient met with Cordelia Costa RN regarding outpatient resources for homelessness, insurance, etc. Email sent by patient to aMria Luisa Mancilla at [facility] and is awaiting followup at this time.
== END 2024-02-07 20:10 ==
LOC: BCD 16:16
PROVIDERS: PCP Family Medicine; Visit Provider Advanced Practice Midwife
DX: O26.893 Other specified pregnancy related conditions, third trimester (principal); R51.9 Headache, unspecified; Z3A.28 28 weeks gestation of pregnancy
CPT/HCPCS: 59025

== ENCOUNTER 2024-02-20 22:53 | Outpatient (CLI) | payer MEDICAID, SELFPAY ==
[2024-02-21] VITALS: BP 110/59; PULSE 82; TEMP 36.8
[2024-02-21] MEDS: Ondansetron O.D.T. 4 MG TABEF PO (00:19)
--- NOTE | 2024-02-21 02:37 | NUR.NOTE ---
Nursing Note: Pt was able to drink a half glass of apple juice and an eritrean muffin with peanut butter without vomiting.
--- NOTE | 2024-02-21 07:45 | W.OBNST ---
Date of service: 02/21/24 Time of Service: 07:45 NST Evaluation Reason for NST Reasons for Nonstress Test: DECREASED MOVEMENT Reason for NST Other: Nausea and vomiting Gestational Age Gestational Age in Weeks and Days: 30 Weeks and 0Days Test and Monitor Explained Test/Monitor Explained: Patient Verbalized Understanding Vital Signs Blood Pressure: 110/59 Pulse: 82 Temperature: 98.2 F NST Information Date on Monitor: 02/20/24 Time on Monitor: 23:40 Date off Monitor: 02/21/24 Time off Monitor: 00:00 Total Time on Monitor: 20 NST Interventions: PO Hydration NST Evaluation Patient States Movement: Present FHR Baseline: 145 Variability: Moderate 6-25 bpm Accelerations: 15x15 Decelerations: None NST Results: Reactive Note Ultrasound Done: N/A. NST Note Note: Pt reported DFM, headache, vomiting, contractions, increased white & clear vaginal mucous which increased with vomiting. On presentation: no acute distress noted, tolerating oral water intake, chatting with friend and texting on phone. NST is reactive, pt reported movement during NST, one contraction was recorded during the 20 minute tracing Vital signs nml, pt declined tylenol. Given 4 mg Zofran ODT, Pt was able to drink apple juice and eat an honduran muffin with pnbutter without emesis Pt was unable to give a urine sample until 2.5 hrs after arrival in unit, dip is negative Cvx chem closed/thick, no presenting part in pelvis, nml vaginal mucous, intact membranes Discharged to home, f/up as scheduled with OB Provider NST Reviewed and Verified by: Aneta Du
[2024-02-21 07:48] VITALS: BP 110/59; PULSE 82; TEMP 36.8
== END 2024-02-21 02:29 | disposition home or self-care (01) ==
LOC: BCD 23:25 → OBS 02-21 00:10
PROVIDERS: PCP Family Medicine; Visit Provider Advanced Practice Midwife
DX: O36.8130 Decreased fetal movements, third trimester, not applicable or unspecified (principal); Z3A.30 30 weeks gestation of pregnancy
CPT/HCPCS: 59025

== ENCOUNTER 2024-03-05 15:15 | Observation (INO) | payer MEDICAID, SELFPAY ==
[2024-03-05] MEDS: Normal Saline Flush 10 ML SYR IVP (15:55)
[2024-03-05] MEDS: Lactated Ringers 500 ML IV (15:57)
[2024-03-05 16:45] LABS: Fetal Fibronectin Negative (Negative); ROM Plus Negative
[2024-03-05 17:12] VITALS: BP 117/71; PULSE 76; TEMP 36.8
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
--- NOTE | 2024-03-05 17:20 | W.OBNST ---
Date of service: 03/05/24 Time of Service: 17:20 NST Evaluation Reason for NST Reasons for Nonstress Test: LABOR Gestational Age Gestational Age in Weeks and Days: 31 Weeks and 6Days Test and Monitor Explained Test/Monitor Explained: Test Explained, Monitor Explained and Patient Verbalized Understanding Vital Signs Blood Pressure: 117/71 Pulse: 76 Temperature: 98.2 F Urine Results Urine Protein: Negative Urine Ketones: Negative Urine Glucose: Negative Urine Blood: Negative NST Information Date on Monitor: 03/05/24 Time on Monitor: 14:08 Date off Monitor: 03/05/24 Time off Monitor: 15:00 Total Time on Monitor: 52 Contraction Frequency: 2-4 NST Evaluation Patient States Movement: Present FHR Baseline: 140 Variability: Moderate 6-25 bpm Accelerations: 15x15 Decelerations: None NST Results: Reactive Note Ultrasound Done: N/A. NST Note Note: reactive NST. Lynn reports cramping and pelvic pain. Contractions noted every 3-4 minutes, Admitted to observation for labor. Dr Sutherland notified of admission. NST Reviewed and Verified by: Candi Garcia
[2024-03-05 17:21] VITALS: BP 117/71; PULSE 76; TEMP 36.8
--- NOTE | 2024-03-05 18:36 | W.PM.OBNL1 ---
Date of service: 03/05/24 Time of Service: 18:36 Pelvic Exam Dilation: 0 Effacement (%): 50 station: -1 Cervix Position: posterior Consistency: soft Vaginal Exam Presentation: Cephalic Contractions Monitor Mode: External Contraction Frequency(min): every 4-6 Contraction Duration(sec): 40-50 Intensity: Mild/Moderate Fetus A Monitor: External (US) Heart Rate Baseline: 140 Presentation: Cephalic Variability: Moderate (6-25 BPM) Categories: Category I FHR Rhythm: Regular Accelerations: 15 X 15 Decelerations: None Assessment and Plan Assessment and plan (1) labor: Status: Acute Assessment and plan: Dr. Sutherland notified of patient's status. She recommends continued observation overnight and reassess in the morning. Regular diet. rest encouraged and NST while awake. Objective Laboratory Results WBC Cancelled 03/05/24 15:15 RBC Cancelled 03/05/24 15:15 Hgb Cancelled 03/05/24 15:15 Hct Cancelled 03/05/24 15:15 MCV Cancelled 03/05/24 15:15 MCH Cancelled 03/05/24 15:15 MCHC Cancelled 03/05/24 15:15 RDW Cancelled 03/05/24 15:15 Plt Count Cancelled 03/05/24 15:15 MPV Cancelled 03/05/24 15:15 Membranes Rupture Negative 03/05/24 15:05 Fibronectin Negative (Negative) 03/05/24 15:05 ABO/Rh Cancelled 03/05/24 15:15 Antibody Screen Cancelled 03/05/24 15:15 Subjective Patient Reports: No new Complaints Interval history since last seen: Miri continues to describe occasional painful contractions. Results Hemoglobin/Hematocrit: Hgb Cancelled 03/05/24 15:15 Hct Cancelled 03/05/24 15:15 Abnormal Lab Findings: 03/05/24 15:05 Vaginal Vaginitis Screen - Final
[2024-03-05] MEDS: Ondansetron O.D.T. 4 MG TABEF 8 MG PO (18:42)
--- NOTE | 2024-03-05 19:10 | W.PM.OBNL1 ---
Date of service: 03/05/24 Time of Service: 19:10 Informed Consent Informed Consent: Risk,Benefits,Alternatives Discussed Pelvic Exam Dilation: 5 Effacement (%): 100 (marked edema) station: -1 Cervix Position: mid Consistency: soft Vaginal Exam Presentation: Cephalic Contractions Monitor Mode: External Contraction Frequency(min): every2-3 Contraction Duration(sec): 60 IUPC resting tone (mmHg): 15 IUPC peak pressure (mmHg): 80 IUPC [place] units: 200 Fetus A Monitor: External (US) Heart Rate Baseline: 150 Presentation: Vertex Variability: Moderate (6-25 BPM) Categories: Category II Accelerations: 15 X 15 Decelerations: Late and Variable Recurrence: Episodic Objective Laboratory Results WBC Cancelled 03/05/24 15:15 RBC Cancelled 03/05/24 15:15 Hgb Cancelled 03/05/24 15:15 Hct Cancelled 03/05/24 15:15 MCV Cancelled 03/05/24 15:15 MCH Cancelled 03/05/24 15:15 MCHC Cancelled 03/05/24 15:15 RDW Cancelled 03/05/24 15:15 Plt Count Cancelled 03/05/24 15:15 MPV Cancelled 03/05/24 15:15 Membranes Rupture Negative 03/05/24 15:05 Fibronectin Negative (Negative) 03/05/24 15:05 ABO/Rh Cancelled 03/05/24 15:15 Antibody Screen Cancelled 03/05/24 15:15 Subjective Patient Reports: No new Complaints Interval history since last seen: Miri is resting comfortably. She is feeling pressure but denies pain. Results Hemoglobin/Hematocrit: Hgb Cancelled 03/05/24 15:15 Hct Cancelled 03/05/24 15:15 Abnormal Lab Findings: 03/05/24 15:05 Vaginal Vaginitis Screen - Final
[2024-03-05 21:07] VITALS: BP 110/60; PULSE 75; RESP 16; TEMP 36.4; O2SAT 99
[2024-03-05] MEDS: hydrOXYzine PAMOATE 25 MG CAP 50 MG PO (23:42)
[2024-03-06] VITALS (8 sets, daily range): BP systolic 108–130; BP diastolic 56–76; PULSE 72–113; RESP 14; TEMP 36.6–36.9; O2SAT 99
[2024-03-06] MEDS: Ondansetron O.D.T. 4 MG TABEF 8 MG PO (10:10)
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
[2024-03-06] MEDS: Lidocaine 5% Patch 1 PATCH TP (10:57)
[2024-03-06] MEDS: NIFEdipine 10 MG CAP 20 MG PO ×2 (11:24→15:37)
--- NOTE | 2024-03-06 12:12 | W.PM.OBNL1 ---
Date of service: 03/06/24 Time of Service: 12:12 Pelvic Exam Dilation: 0 Effacement (%): 50 station: -2 Cervix Position: posterior Consistency: medium Vaginal Exam Presentation: Cephalic Contractions Monitor Mode: External Contraction Frequency(min): every 3-6 Contraction Duration(sec): 40-50 Intensity: Mild Fetus A Monitor: External (US) Heart Rate Baseline: 140 Variability: Moderate (6-25 BPM) Categories: Category I FHR Rhythm: Regular Accelerations: 15 X 15 Decelerations: None Assessment and Plan Assessment and plan (1) Abdominal pain affecting : Status: Acute Assessment and plan: Reviewed lab results. neg FFN, neg ROM plus and neg vaginal pathogen screen. Chlamydia and urine culture pending. ondansetron PO 8 mg ODT now and consultation with Dr Joseph regarding Miri's status. (2) contractions: Status: Acute Assessment and plan: Discussed no change in her cervix and the vertex is higher than it was last night with Miri and her partner. I recommended rest today and adequate fluid intake. Will consult with Dr. Mason re: discharge plan. Objective Temp Pulse Resp BP Pulse Ox 97.9 F 83 14 108/59 L 99 03/06/24 07:29 03/06/24 11:24 03/06/24 11:24 03/06/24 11:24 03/05/24 21:07 Laboratory Results WBC Cancelled 03/05/24 15:15 RBC Cancelled 03/05/24 15:15 Hgb Cancelled 03/05/24 15:15 Hct Cancelled 03/05/24 15:15 MCV Cancelled 03/05/24 15:15 MCH Cancelled 03/05/24 15:15 MCHC Cancelled 03/05/24 15:15 RDW Cancelled 03/05/24 15:15 Plt Count Cancelled 03/05/24 15:15 MPV Cancelled 03/05/24 15:15 Membranes Rupture Negative 03/05/24 15:05 Fibronectin Negative (Negative) 03/05/24 15:05 ABO/Rh Cancelled 03/05/24 15:15 Antibody Screen Cancelled 03/05/24 15:15 Subjective Patient Reports: New Complaints (nausea) Interval history since last seen: Miri too vistaril 50 mg to sleep lst night. She slept off and onn but still complains of pain. Reactive NST. Uterine irritability noted. She also complains of nausea. Results Hemoglobin/Hematocrit: Hgb Cancelled 03/05/24 15:15 Hct Cancelled 03/05/24 15:15 Abnormal Lab Findings: 03/05/24 15:05 Vaginal Vaginitis Screen - Final
[2024-03-06 12:40] LABS: Chlamydia Result Negative (Negative); GC Result Negative (Negative)
[2024-03-06] MEDS: Docusate Sodium 100 MG CAP (19:42)
[2024-03-06] MEDS: Esomeprazole 20 MG CAPCR PO (19:42)
[2024-03-06] MEDS: hydrOXYzine PAMOATE 25 MG CAP 50 MG PO (21:52)
[2024-03-06] MEDS: Patch Removal LIDOCAINE 1 EACH TP (23:25)
[2024-03-07] MEDS: NIFEdipine 10 MG CAP 20 MG PO ×2 (05:45→18:22)
[2024-03-07] MEDS: Esomeprazole 20 MG CAPCR PO ×2 (07:16→20:06)
[2024-03-07 07:19] VITALS: BP 120/64; PULSE 101; RESP 12; TEMP 36.7
[2024-03-07 07:22] VITALS: BP 120/64; PULSE 101; TEMP 36.7
--- NOTE | 2024-03-07 09:10 | PGE_ITS ---
Date of Service Date of service: 03/07/24 Time of Service: 09:10 Assessment and Plan Assessment and plan (1) contractions: Status: Acute Assessment and plan: I spoke with Dr. Wood [facility] about plan of care for pt. Her impression is that the old blood may be secondary to cervical exams. Plan is to administer Betamethasone, give Nifedipine 4mg PRN contractions q 4hrs and obtain OB u/s Saturday03/09/24. Plan to continue to observe pt on . (2) Abdominal pain affecting : Status: Acute Subjective Subjective Patient reports: still having pain (quiet night. episode of painful regular contractions in am. ), tolerating a regular diet and no bowel movement (Pt used laxative yesterday) Interval history since last seen: Scheduled Nifedipine dosing held during the night as she was not experiencing contractions. . Pt was comfortable and sleeping. She awoke this morning with onset of painful regular contractions. Reported brown tinged mucus on underclothes. Receive dose of Nifedipine and contractions subsided after one hour. Exam General: No CVA tenderness External Female Exam: normal external appearance and normal appearance of the urethra Speculum Exam - Vagina: normal appearance of the vagina and normal vaginal discharge (brown tinged cervical mucus. No active bleeding, ) Speculum Exam - Cervix: normal appearance of the cervix (closed. No active bleeding), closed and normal vervical discharge OB/External & Speculum: external exam normal Manual OB Exam: dilated (zero), effaced 25%, station -2 and other (cervix midposition. Soft. ) Amniotic Fluid: no fluid Back/Spine/Pelvis Back: no CVA tenderness Skin General skin exam: no rashes or lesions noted Neuro General: patient alert, patient awake and patient oriented x3 Extrem General: normal to inspection Psych Appearance: grossly normal Mental Status: mental status grossly normal Speech and Movement: speech and movement normal Mood: anxious mood Affect: normal affect Attitude: cooperative Thought Process: normal Thought Content: normal Insight: insight good Judgment: judgment good Objective Last Vital Signs Temp 98.1 F 03/07/24 07:19 Pulse 101 H 03/07/24 07:19 Resp 12 03/07/24 07:19 BP 120/64 03/07/24 07:19 Pulse Ox 99 03/06/24 19:52 Laboratory Results - last 24 hr 03/05/24 15:05 Chlamydia DNA Probe Negative Chlamydia/GC DNA Source Not Applicable N.gonorrhoeae DNA Probe Negative Time Spent with Patient Time Spent with Patient: 25-34 minutes Time was spent: preparing to see the patient(eg.review tests), obtaining and/or reviewing separately otained hiistory, ordering medications,tests, procedures, referring, communicating with other health healthcare administrative assistant and counseling the patient
[2024-03-07] MEDS: Betamet Acet/Betamet Na Ph Inj. 30 MG/5 ML 12 MG IM (09:36)
[2024-03-07] MEDS: Ondansetron O.D.T. 4 MG TABEF 8 MG PO (12:01)
[2024-03-07 15:06] VITALS: BP 113/57; PULSE 85; TEMP 36.9
[2024-03-07 21:44] VITALS: BP 103/55; PULSE 141
[2024-03-08 02:47] VITALS: BP 113/54; PULSE 87
[2024-03-08] MEDS: NIFEdipine 10 MG CAP 20 MG PO ×2 (02:49→11:18)
[2024-03-08] MEDS: diphenhydrAMINE 25 MG CAP 50 MG PO (02:49)
[2024-03-08] MEDS: Esomeprazole 20 MG CAPCR PO ×2 (09:02→22:24)
[2024-03-08] MEDS: Ondansetron O.D.T. 4 MG TABEF 8 MG PO ×2 (09:04→18:41)
[2024-03-08 09:09] VITALS: BP 117/56; PULSE 128; TEMP 36.9
[2024-03-08 09:11] VITALS: BP 117/56; PULSE 139; RESP 14; TEMP 36.9
[2024-03-08] MEDS: Betamet Acet/Betamet Na Ph Inj. 30 MG/5 ML 12 MG IM (09:51)
--- NOTE | 2024-03-08 13:34 | PGE_ITS ---
Date of Service Date of service: 03/08/24 Time of Service: 13:34 Assessment and Plan Assessment and plan (1) contractions: Status: Acute Assessment and plan: Pt has episodic painful regular contractions that has been treated with Nifedipine 20mg PRN. She has required two doses last night. However the contractions do not persist. Vaginal discharge has been attributed to SVE. Plan is OB u/s tomorrow and if nl placental appearance and CHIKIS will discharge home with Rx of Nifedipine PRN. (2) GERD (gastroesophageal reflux disease): Status: Chronic Assessment and plan: Protonix changed to Nexium Qualifiers: Esophagitis presence: without esophagitis Qualified Code(s): K21.9 - Gastro-esophageal reflux disease without esophagitis Subjective Subjective Patient reports: still having pain (continues to report contractions not relieved by Nifedipine. ), tolerating a regular diet, bowel movement (yesterday x2) and nausea (no emesis. unclear if 2/2 constipation or GERD.) Exam Narrative Exam Narrative: HD3 currently 32w3d EGA admitted with contractions on 03/05/24. Neg UCx, Neg STI testing, Neg vag path screen. Pt received OTC Nifedipine during night of admission with contractions decreasing in frequency and strength. Pt had another episode of painful regular contractions that responded to two doses of Nifedipine last evening. Pt has received Celestone 12mg IM x 2. She continues nauseated and is receiving Ondansetron. Her insomnia predates this admission and had responded to Hydroxyzine but last evening required an additional dose of Benadryl to fall asleep at 0500. Const General: no acute distress Nutritional Appearance: well nourished Orientation: alert, awake and oriented x3 Resp Effort & Inspection: normal respiratory effort General: deferred Skin Rashes: rashes noted (over shoulders and neck. Pt reports it's appearance after #2 steroid inj) Neuro Cognition: normal cognition Speech: speech normal Extrem General: other (Light erythema on ventral surface of both feet.) Objective Last Vital Signs Temp 98.4 F 03/08/24 09:11 Pulse 139 H 03/08/24 09:11 Resp 14 03/08/24 09:11 BP 117/56 L 03/08/24 09:11 Pulse Ox 99 03/06/24 19:52 Time Spent with Patient Time Spent with Patient: <25 minutes Time was spent: preparing to see the patient(eg.review tests), obtaining and/or reviewing separately otained hiistory, referring, communicating with other health care provider and counseling the patient
[2024-03-08 16:55] VITALS: BP 115/57; PULSE 90
[2024-03-08 17:05] VITALS: BP 115/57; PULSE 90; TEMP 36.8
[2024-03-08 22:59] VITALS: BP 105/59; PULSE 99
[2024-03-09 07:48] VITALS: BP 118/55; PULSE 98; RESP 15; TEMP 36.5; O2SAT 99
--- NOTE | 2024-03-09 09:00 | DI.US_ITS ---
Exam(s) US OB CHIKIS WEIGHT EXAM: US OB CHIKIS WEIGHT CLINICAL HISTORY: 32w2d EGA with contractions.. TECHNIQUE: Transabdominal obstetrical ultrasound performed. COMPARISON: US US OB CHIKIS WEIGHT from 02/04/2024 FINDINGS: Number of fetuses: 1 position: Cephalic. Placental location: There is a grade 2 fundal and right-sided placenta. No evidence of previa. BIOMETRIC DATA: BPD: 8.01cm, 32weeks 1day HC: 28.65cm, 31weeks 3days AC: 26.06cm, 30weeks 1day FL: 5.75cm, 30weeks 1day EFW: 1,575.19g, 3lb 8.53oz, 3.6% Composite Age: 31weeks TIMMY: 05/11/2024 Heart Rate: 125bpm Amniotic fluid index: 9.76cm. The largest pocket measures 2.8 cm. Umbilical artery: PI : R I : S/D Proximal: 0.98 : 0.63 : 2.7 Mid: 0.86 : 0.61 : 2.6 Distal: 0.90 : 0.60 : 2.5 IMPRESSION: 1. Single live intrauterine gestation as above. 2. Estimated weight is 1575gms. This is the 3.6 percentile. 3. Amniotic fluid index is 9.8 cm. The largest pocket is 2.8 cm. DATA REPOSITORY:
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
[2024-03-09 09:23] VITALS: BP 118/55; PULSE 98; TEMP 36.5
== END 2024-03-09 10:40 | disposition home or self-care (01) ==
LOC: BCD 15:44 → OBS 15:44
PROVIDERS: Admitting Provider Advanced Practice Midwife; PCP Family Medicine; Visit Provider Advanced Practice Midwife
DX: O60.03 Preterm labor without delivery, third trimester (principal); Z3A.31 31 weeks gestation of pregnancy; O99.613 Diseases of the digestive system complicating pregnancy, third trimester; O99.343 Other mental disorders complicating pregnancy, third trimester; F41.8 Other specified anxiety disorders; O99.323 Drug use complicating pregnancy, third trimester; F12.90 Cannabis use, unspecified, uncomplicated; O99.013 Anemia complicating pregnancy, third trimester; D64.9 Anemia, unspecified; O99.353 Diseases of the nervous system complicating pregnancy, third trimester; O26.13 Low weight gain in pregnancy, third trimester; K50.90 Crohn's disease, unspecified, without complications; G43.909 Migraine, unspecified, not intractable, without status migrainosus; O26.893 Other specified pregnancy related conditions, third trimester; Z67.91 Unspecified blood type, Rh negative; R11.2 Nausea with vomiting, unspecified; K21.9 Gastro-esophageal reflux disease without esophagitis; M54.9 Dorsalgia, unspecified; Z59.01 Sheltered homelessness; J45.909 Unspecified asthma, uncomplicated; O99.513 Diseases of the respiratory system complicating pregnancy, third trimester; F17.290 Nicotine dependence, other tobacco product, uncomplicated; O99.333 Smoking (tobacco) complicating pregnancy, third trimester; R10.9 Unspecified abdominal pain; G47.00 Insomnia, unspecified
CPT/HCPCS: 59025; 76816; 84112; 85027; 86850; 86900; 86901; 87491; 87591; 82731; 87081; 87086; 87480; 87510; 87660; G0378; J0702; J3490

== ENCOUNTER 2024-03-13 10:13 | Observation (INO) | payer MEDICAID, SELFPAY ==
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
[2024-03-13 09:59] VITALS: BP 109/67; PULSE 130; RESP 22; O2SAT 100
[2024-03-13 10:39] LABS: HCT 34.5 % (36.0-46.0); HGB 11.3 g/dL (11.2-15.7); MCH 28.5 pg (27.0-33.0); MCHC 32.8 % (32.0-36.0); MCV 87 fL (80-95); MPV 9.7 fL (8.0-11.0); Platelet Count 273 10^3/uL (130-400); RBC 3.97 10^6/uL (3.93-5.22); RDW 13.1 % (11.7-14.6); RDW-SD 41.6 fL; WBC 10.82 10^3/uL (4.4-10.8)
[2024-03-13 10:40] VITALS: BP 109/67; PULSE 128; TEMP 37.7
[2024-03-13 10:44] LABS: Bilirubin Negative (Negative); Blood Negative (Negative); Clarity Clear (Clear); Glucose Negative (Negative); Ketones Negative (Negative); Leukocyte Esterase Small (Negative); Nitrite Negative (Negative); pH 7.5 (5-8)
[2024-03-13 10:53] LABS: Bacteria Many HPF (Negative); C & S Indicated? No/Sq. Contamination; Casts Negative LPF (Negative); Crystals Negative HPF (Negative); Epithelial Cells Many HPF (Negative); Mucus Negative (Negative); Other Cells Negative (Negative); RBC Negative HPF (0-2); WBC 20-50 HPF (0-5)
[2024-03-13 10:54] LABS: ALT 31 U/L (14-59); AST 16 U/L (15-37); Alkaline Phosphatase 139 U/L (46-116); Anion Gap 9.7 mmol/L (3-11); BUN 6 mg/dL (7-18); Bilirubin, Total 0.39 mg/dL (0.2-1.0); CO2 24.3 mmol/L (21.0-32.0); CREATININE 0.5 mg/dL (0.55-1.02); Chloride 104 mmol/L (98-107); Estimated GFR 137.62 (mL/min/1.73m2); Glucose 89 mg/dL (74-106); Potassium 3.9 mmol/L (3.5-5.1); Sodium 138 mmol/L (136-145); Total Protein 7.2 g/dL (6.4-8.2)
[2024-03-13 11:06] LABS: *AMPHETAMINES SCREEN URINE Negative (Negative); *BARBITURATES SCREEN URINE Negative (Negative); *BENZODIAZEPINES SCREEN URINE Negative (Negative); Cannabinoids THC Positive (Negative); Cocaine Screen,Urine Negative (Negative); METHADONE URINE SCREEN Negative (Negative); OPIATES URINE SCREEN Negative (Negative)
[2024-03-13 11:07] LABS: Tricyclic Antidepressants Negative (Negative)
--- NOTE | 2024-03-13 11:17 | PGE_ITS ---
Date of Service Date of service: 03/13/24 Time of Service: 11:17 Assessment and Plan Assessment and plan (1) : Status: Acute Assessment and plan: Patient is a 33 weeks gestation. She has occasional irregular contraction. She does appear to have a urinary tract infection which will be treated empirically with mag a bit while we await her culture. She will continue on her oral Procardia as needed. Will continue to monitor, hydrate, antiemetics. All questions answered. (2) Rh negative state in antepartum period: Status: Acute (3) Pelvic pain affecting : Status: Acute (4) Cough: Status: Acute Subjective Subjective Interval history since last seen: Patient admits to some continued lower abdominal discomfort. She also has reported congestion, and a cough. Her partner states that she has had ongoing congestion, though the cough is new. In light of these facts, we will do a Fluvid swab and contacts will mask. Her urinalysis is positive for white blood cells and leukocyte Estrace. Will await culture, though she will be empirically treated with Macrobid. Objective Last Vital Signs Pulse 130 H 03/13/24 09:59 Resp 22 03/13/24 09:59 BP 109/67 03/13/24 09:59 Pulse Ox 100 03/13/24 09:59 Laboratory Results - last 24 hr 03/13/24 03/13/24 10:20 10:30 WBC 10.82 H RBC 3.97 Hgb 11.3 Hct 34.5 L MCV 87 MCH 28.5 MCHC 32.8 RDW 13.1 Plt Count 273 MPV 9.7 Sodium 138 Potassium 3.9 Chloride 104 Carbon Dioxide 24.3 Anion Gap 9.7 BUN 6 L Creatinine 0.5 L Est GFR (CKD-EPI 2020) 137.62 Glucose 89 Calcium 9.0 Total Bilirubin 0.39 AST 16 ALT 31 Alkaline Phosphatase 139 H Total Protein 7.2 Albumin 3.0 L Urine Color Yellow Urine Clarity Clear Urine pH 7.5 Ur Specific [place] 1.020 Urine Protein Negative Urine Ketones Negative Urine Blood Negative Urine Nitrite Negative Urine Bilirubin Negative Urine Urobilinogen 1.0 H Ur Leukocyte Esterase Small H Urine RBC Negative Urine WBC 20-50 H Ur Epithelial Cells Many Urine Crystals Negative Urine Bacteria Many Urine Casts Negative Urine Mucus Negative Urine Other Negative Ur Culture Indicated? No/Sq. Contamination Urine Glucose Negative Urine Opiates Screen Negative Urine Methadone Screen Negative Ur Barbiturates Screen Negative Ur Tricyclics Screen Negative Ur Amphetamines Screen Negative U Benzodiazepines Scrn Negative Urine Cocaine Screen Negative Ur THC Screen Positive A Time Spent with Patient Time Spent with Patient: 25-34 minutes Time was spent: preparing to see the patient(eg.review tests), obtaining and/or reviewing separately otained hiistory, ordering medications,tests, procedures, referring, communicating with other health summer child caregiver, indepentently interpreting results and counseling the patient
[2024-03-13] MEDS: NIFEdipine 10 MG CAP 20 MG PO (11:19)
[2024-03-13] MEDS: Normal Saline Flush 10 ML SYR IVP (11:20)
[2024-03-13] MEDS: Lactated Ringers 500 ML 1000 ML IV (11:30)
[2024-03-13] MEDS: Ondansetron 4 MG/2 ML VIAL IVP (12:03)
[2024-03-13 13:16] LABS: Influenza A PCR Negative (Negative); Influenza B PCR Negative (Negative); RSV PCR Negative (Negative)
[2024-03-13 13:18] LABS: COVID-19 PCR Positive (Negative); Source Nasopharynx
[2024-03-13] MEDS: MacroBID 100 MG CAP (13:26)
--- NOTE | 2024-03-13 13:41 | NUR.NOTE ---
Nursing Note: Dr Noel in room discussing Covid Positive result with pt and developing POC
--- NOTE | 2024-03-13 13:46 | NUR.NOTE ---
Nursing Note: Pt is being discharged to home by Dr Noel, scripts sent to [facility] by Dr Noel
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
--- NOTE | 2024-03-13 13:55 | W.OBNST ---
Date of service: 03/13/24 Time of Service: 13:55 NST Evaluation Reason for NST Reasons for Nonstress Test: OTHER, SEE COMMENT Reason for NST Other: contractions Gestational Age Gestational Age in Weeks and Days: 33 Weeks and 0Days Test and Monitor Explained Test/Monitor Explained: Test Explained, Monitor Explained and Patient Verbalized Understanding Vital Signs Blood Pressure: 109/67 Pulse: 128 Temperature: 99.9 F NST Information Date on Monitor: 03/13/24 Time on Monitor: 09:55 Date off Monitor: 03/13/24 Time off Monitor: 12:05 Total Time on Monitor: 130 NST Interventions: PO Hydration and IV Fluids NST Evaluation Patient States Movement: Present FHR Baseline: 150 Variability: Moderate 6-25 bpm Accelerations: 15x15 and 10x10 Decelerations: None NST Results: Reactive Note Ultrasound Done: Presentation (Abdominal pain) Presentation Results: Vertex Coding for Presentation w/NST: Completed Exam. NST Note Note: Initially demonstrating tachycardia, though with IV hydration and decrease in abdominal discomfort, category 1 strip with baseline heart rate 150 moderate variability. NST Reviewed and Verified by: Sophia Noel
[2024-03-13 13:56] VITALS: BP 109/67; PULSE 128; TEMP 37.7
--- NOTE | 2024-03-13 14:00 | NUR.NOTE ---
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 Pt to call Office on the 4th. Pt denied questions, masks given and pt discharged home abulatory.
== END 2024-03-13 14:02 | disposition home or self-care (01) ==
PROVIDERS: Admitting Provider Obstetrics & Gynecology; PCP Family Medicine; Visit Provider Obstetrics & Gynecology
DX: O99.513 Diseases of the respiratory system complicating pregnancy, third trimester (principal); O99.613 Diseases of the digestive system complicating pregnancy, third trimester; U07.1 COVID-19; O23.43 Unspecified infection of urinary tract in pregnancy, third trimester; O36.5930 Maternal care for other known or suspected poor fetal growth, third trimester, not applicable or unspecified; O26.893 Other specified pregnancy related conditions, third trimester; Z67.91 Unspecified blood type, Rh negative; R10.2 Pelvic and perineal pain; O98.513 Other viral diseases complicating pregnancy, third trimester; Z79.899 Other long term (current) drug therapy; O26.843 Uterine size-date discrepancy, third trimester; R05.9 Cough, unspecified; N39.0 Urinary tract infection, site not specified; O99.343 Other mental disorders complicating pregnancy, third trimester; F41.8 Other specified anxiety disorders; K50.90 Crohn's disease, unspecified, without complications; Z3A.33 33 weeks gestation of pregnancy; O99.013 Anemia complicating pregnancy, third trimester; D64.9 Anemia, unspecified; K21.9 Gastro-esophageal reflux disease without esophagitis; G43.909 Migraine, unspecified, not intractable, without status migrainosus; Z59.01 Sheltered homelessness; J45.909 Unspecified asthma, uncomplicated; O26.13 Low weight gain in pregnancy, third trimester; O99.353 Diseases of the nervous system complicating pregnancy, third trimester; O99.333 Smoking (tobacco) complicating pregnancy, third trimester; F17.290 Nicotine dependence, other tobacco product, uncomplicated
CPT/HCPCS: 59025; 36415; 80053; 80307; 85027; 86850; 86900; 86901; 87637; 81003; 81015; 86870; G0378; J2405

== ENCOUNTER 2024-03-28 09:53 | Outpatient (CLI) | payer MEDICAID, SELFPAY ==
[2024-03-28 10:42] VITALS: BP 105/63; PULSE 110; TEMP 36.6
[2024-03-28 10:44] VITALS: BP 105/63; PULSE 110
[2024-03-28 10:55] VITALS: BP 105/63; PULSE 110; RESP 18; TEMP 36.6
[2024-03-28 10:59] VITALS: BP 105/63; PULSE 110; RESP 18; TEMP 36.6
--- NOTE | 2024-03-28 11:48 | W.OBNST ---
Date of service: 03/28/24 Time of Service: 11:48 NST Evaluation Reason for NST Reasons for Nonstress Test: LABOR Gestational Age Gestational Age in Weeks and Days: 35 Weeks and 1Days Test and Monitor Explained Test/Monitor Explained: Test Explained, Monitor Explained and Patient Verbalized Understanding Vital Signs Blood Pressure: 105/63 Pulse: 110 Temperature: 97.9 F Urine Results Urine Protein: Negative Urine Ketones: Positive Urine Glucose: Negative Urine Blood: Negative NST Information Date on Monitor: 03/28/24 Time on Monitor: 10:33 Date off Monitor: 03/28/24 Time off Monitor: 11:27 Total Time on Monitor: 54 NST Interventions: PO Hydration Contraction Frequency: 5-8 NST Evaluation Patient States Movement: Present FHR Baseline: 140 Variability: Moderate 6-25 bpm Accelerations: 15x15 Decelerations: None NST Results: Reactive Note Ultrasound Done: N/A. NST Note Note: Category 1 reactive NST, SVE ft, 40% 0 station Not in labor. D/C home NST Reviewed and Verified by: Sophia Noel
[2024-03-28 11:49] VITALS: BP 105/63; PULSE 110; TEMP 36.6
== END 2024-03-28 11:35 | disposition other institution (70) ==
LOC: BCD 09:56 → OBS 10:41
PROVIDERS: PCP Family Medicine; Visit Provider Obstetrics & Gynecology
DX: O47.03 False labor before 37 completed weeks of gestation, third trimester (principal); Z3A.35 35 weeks gestation of pregnancy
CPT/HCPCS: 59025; 99211; G0378

== ENCOUNTER 2024-04-01 15:10 | Outpatient (REF) | payer MEDICAID, SELFPAY | END 2024-04-01 15:11 | disposition home or self-care (01) | LOC: LBN 15:10 | PROVIDERS: PCP Family Medicine; Visit Provider Obstetrics & Gynecology Gynecology | DX: Z34.93 Encounter for supervision of normal pregnancy, unspecified, third trimester (principal) | CPT/HCPCS: 87081 ==

== ENCOUNTER 2024-04-09 03:20 | Outpatient (CLI) | payer MEDICAID, SELFPAY ==
[2024-04-09 03:34] VITALS: BP 131/66; PULSE 80; RESP 18; TEMP 36.9
[2024-04-09 03:39] VITALS: BP 131/66; PULSE 80; RESP 18; TEMP 36.9
[2024-04-09 04:08] VITALS: BP 131/66; PULSE 80; TEMP 36.9
--- NOTE | 2024-04-09 17:00 | W.OBNST ---
Date of service: 04/09/24 Time of Service: 17:00 NST Evaluation Reason for NST Reasons for Nonstress Test: FALSE LABOR Gestational Age Gestational Age in Weeks and Days: 36 Weeks and 6Days Test and Monitor Explained Test/Monitor Explained: Test Explained, Monitor Explained and Patient Verbalized Understanding Vital Signs Blood Pressure: 131/66 Pulse: 80 Temperature: 98.4 F NST Information Date on Monitor: 04/09/24 Time on Monitor: 03:30 Date off Monitor: 04/09/24 Time off Monitor: 04:20 Total Time on Monitor: 50 NST Interventions: PO Hydration NST Evaluation Patient States Movement: Present FHR Baseline: 140 Variability: Moderate 6-25 bpm Accelerations: 15x15 Decelerations: None NST Results: Reactive Note Ultrasound Done: N/A. NST Note NST Reviewed and Verified by: Griselda Sutherland
[2024-04-09 17:01] VITALS: BP 131/66; PULSE 80; TEMP 36.9
== END 2024-04-09 04:17 | disposition home or self-care (01) ==
PROVIDERS: PCP Family Medicine; Visit Provider Obstetrics & Gynecology
DX: O47.03 False labor before 37 completed weeks of gestation, third trimester (principal); Z3A.36 36 weeks gestation of pregnancy
CPT/HCPCS: 59025

== ENCOUNTER 2024-04-17 09:41 | Outpatient (CLI) | payer MEDICAID, SELFPAY ==
[2024-04-17 13:52] VITALS: BP 119/75; PULSE 104; TEMP 36.9
[2024-04-17 14:17] VITALS: BP 119/75; PULSE 104
--- NOTE | 2024-04-17 14:31 | PDOC.ANES ---
Date of service: 04/17/24 Time of Service: 14:05 Anesthesia Note Report Anesthesia Note: Met with patient on OB floor today during NST to discuss history of scoliosis and desire to have epidural analgesia during labor. The patient is scheduled for IOL next Saturday04/24/24, if she does not present earlier. The patient's back was palpated to assess interspaces as well as an ultrasound to identify landmarks. I think it would be reasonable to attempt an epidural, but discussed the likelihood of difficult placement, uneven distribution, or failed attempts. Patient understands these variables and verbalized an appreciation for the the visit.
--- NOTE | 2024-04-20 10:21 | W.OBNST ---
Date of service: 04/17/24 Time of Service: 16:00 NST Evaluation Reason for NST Reasons for Nonstress Test: OTHER, SEE COMMENT Reason for NST Other: well being Gestational Age Gestational Age in Weeks and Days: 38 Weeks and 0Days Test and Monitor Explained Test/Monitor Explained: Test Explained, Monitor Explained and Patient Verbalized Understanding Vital Signs Blood Pressure: 119/75 Pulse: 104 Temperature: 98.4 F NST Information Date on Monitor: 04/17/24 Time on Monitor: 13:55 Date off Monitor: 04/17/24 NST Interventions: PO Hydration NST Evaluation Patient States Movement: Present FHR Baseline: 130 Variability: Moderate 6-25 bpm Accelerations: 15x15 Decelerations: None NST Results: Reactive Note Ultrasound Done: N/A. NST Note Note: U/S performed in DI prior to today's NST: EFW 7th%tile. Nl CHIKIS. VTX. I reviewed plan for delivery. Oxytocin IOL in one week. Cervix is effaced and fetus is engaged. She met with Anesthesia today and discussed her plans for labor analgesia. She has significant scoliosis which may make placing an epidural difficult or once sided. NST Reviewed and Verified by: Michaela Mason
[2024-04-20 10:23] VITALS: BP 119/75; PULSE 104; TEMP 36.9
== END 2024-04-17 14:30 | disposition other institution (70) ==
LOC: BCD 09:42 → OBS 13:50
PROVIDERS: PCP Family Medicine; Visit Provider Obstetrics & Gynecology
DX: O36.5930 Maternal care for other known or suspected poor fetal growth, third trimester, not applicable or unspecified (principal); O99.891 Other specified diseases and conditions complicating pregnancy; M41.9 Scoliosis, unspecified; Z3A.38 38 weeks gestation of pregnancy
CPT/HCPCS: 59025

== ENCOUNTER 2024-04-17 12:46 | Outpatient (CLI) | payer MEDICAID, SELFPAY ==
--- NOTE | 2024-04-17 07:15 | DI.US_ITS ---
Exam(s) US OB CHIKIS WEIGHT EXAM: US OB CHIKIS WEIGHT CLINICAL HISTORY: fetus in 3rd %tile in Nov. please assess growth. [id number]. TECHNIQUE: Transabdominal obstetrical ultrasound was performed. COMPARISON: US POCUS EXAM from 03/13/2024 FINDINGS: There is a single viable intrauterine gestation with cardiac activity identified-151 bpm The fetus is presently in cephalic position . Amniotic fluid: There is a normal amount of amniotic fluid with an CHIKIS of 14.4cm. Placental location: The placenta is posterior grade 2,with no evidence of placenta previa. Dating parameters place this at approximately 36 weeks and 2 days gestational age, implying TIMMY of 05/13/2024. BPD measures 37 weeks and 6 days HC measures 39 weeks and 0 days AC measures 35 weeks and 3 days FL measures 32 weeks and 5 days Estimated weight is 2637 gm-5 pounds, 13 ounces Fetus is at the 7th percentile on the Hadlock scale. UMBILICAL ARTERY MEASUREMENT: Measurements were performed at 3 levels along umbilical cord, proximal/, mid level and distal/pl acenta. All measurements of pulsatility index/resistive index and systolic/diastolic ratios are within normal limits for a 38 week fetus (between 50th and 90th percentiles). IMPRESSION:: Viable 3rd trimester gestation, as described above. Fetus is only at the 7th percentile on the Hadlock scale There is normal amount of amniotic fluid. Umbilical artery Doppler measurements are within normal limits, as discussed above. DATA REPOSITORY:
== END 2024-04-17 13:06 ==
LOC: DI 12:47
PROVIDERS: PCP Family Medicine; Visit Provider Obstetrics & Gynecology Gynecology
DX: O36.5931 Maternal care for other known or suspected poor fetal growth, third trimester, fetus 1 (principal); Z3A.38 38 weeks gestation of pregnancy
CPT/HCPCS: 76816

== ENCOUNTER 2024-04-21 08:06 | Outpatient (CLI) | payer MEDICAID, SELFPAY ==
[2024-04-21 10:28] VITALS: BP 110/67; PULSE 73; TEMP 36.4
--- NOTE | 2024-04-21 13:52 | W.OBNST ---
Date of service: 04/21/24 Time of Service: 10:00 NST Evaluation Reason for NST Reasons for Nonstress Test: OTHER, SEE COMMENT Reason for NST Other: SGA Gestational Age Gestational Age in Weeks and Days: 38 Weeks and 4Days Test and Monitor Explained Test/Monitor Explained: Test Explained, Monitor Explained and Patient Verbalized Understanding Vital Signs Blood Pressure: 110/67 Pulse: 73 Temperature: 97.5 F Urine Results Urine Protein: Negative Urine Ketones: Negative Urine Glucose: Negative Urine Blood: Negative NST Information Date on Monitor: 04/21/24 Time on Monitor: 09:56 Date off Monitor: 04/21/24 Time off Monitor: 10:23 Total Time on Monitor: 27 NST Interventions: None Contraction Frequency: Occasional-Mild NST Evaluation Patient States Movement: Present FHR Baseline: 135 Variability: Moderate 6-25 bpm Accelerations: 15x15 Decelerations: None NST Results: Reactive Note Ultrasound Done: N/A. NST Note NST Reviewed and Verified by: Griselda Sutherland
[2024-04-21 13:53] VITALS: BP 110/67; PULSE 73; TEMP 36.4
== END 2024-04-21 11:15 ==
LOC: BCD 08:06 → OBS 10:02
PROVIDERS: PCP Family Medicine; Visit Provider Obstetrics & Gynecology
DX: O21.9 Vomiting of pregnancy, unspecified (principal); R10.817 Generalized abdominal tenderness; Z3A.38 38 weeks gestation of pregnancy
CPT/HCPCS: 59025

== ENCOUNTER 2024-04-21 16:11 | Outpatient (CLI) | payer MEDICAID, SELFPAY ==
[2024-04-21 17:00] VITALS: BP 123/75; PULSE 85
[2024-04-21 17:01] VITALS: BP 123/75; PULSE 85; TEMP 37
[2024-04-21 17:48] LABS: HCT 37.8 % (36.0-46.0); HGB 11.9 g/dL (11.2-15.7); MCH 26.1 pg (27.0-33.0); MCHC 31.5 % (32.0-36.0); MCV 83 fL (80-95); Platelet Count 263 10^3/uL (130-400); RBC 4.56 10^6/uL (3.93-5.22); RDW 14.3 % (11.7-14.6); RDW-SD 42.7 fL; WBC 10.16 10^3/uL (4.4-10.8)
[2024-04-21 18:06] LABS: ALT 22 U/L (14-59); AST 20 U/L (15-37); Albumin 2.8 g/dL (3.4-5.0); Alkaline Phosphatase 191 U/L (46-116); Amylase 85 U/L (25-115); Anion Gap 10.8 mmol/L (3-11); BUN 9 mg/dL (7-18); Bilirubin, Total 0.48 mg/dL (0.2-1.0); CO2 23.2 mmol/L (21.0-32.0); CREATININE 0.6 mg/dL (0.55-1.02); Chloride 105 mmol/L (98-107); Glucose 73 mg/dL (74-106); Lipase 31 U/L (<78); Potassium 3.9 mmol/L (3.5-5.1); Sodium 139 mmol/L (136-145); Total Protein 7.2 g/dL (6.4-8.2)
[2024-04-21 18:10] LABS: Calcium 9.6 mg/dL (8.5-10.1)
--- NOTE | 2024-04-21 18:19 | W.OBNST ---
Date of service: 04/21/24 Time of Service: 18:19 NST Evaluation Reason for NST Reasons for Nonstress Test: OTHER, SEE COMMENT Gestational Age Gestational Age in Weeks and Days: 38 Weeks and 4Days Test and Monitor Explained Test/Monitor Explained: Test Explained, Monitor Explained and Patient Verbalized Understanding Vital Signs Blood Pressure: 123/75 Pulse: 85 Temperature: 98.6 F NST Information Time on Monitor: 17:00 Contraction Frequency: irregular NST Evaluation Patient States Movement: Present FHR Baseline: 140 Variability: Moderate 6-25 bpm Accelerations: 15x15 Decelerations: None NST Results: Reactive Note Ultrasound Done: N/A. NST Note Note: Pt reports constant pain and vomiting since a cervical exam earlier this am. She did take a nap after she went home but then woke up vomiting. She says she has been unable to keep liquid down. She denies bleeding or loss of fluid. Feeling movement. On exam she c/o generalized tenderness to palpation throughout her abdomen. She says the pain improves when she pushes the baby down away from her ribs but then she feels more pain in her cervix. She also has some irregular contractions but that pain is different then the constant pain. She says the zofran she has at home does not work and that the only thing that works is something through the IV here. She declines phenergan suppository. From her history the only medication she has gotten IV for nausea was zofran. Labs were checked including amylase/lipase and CMP and they were normal, including electrolytes. Did not recommend cervical exam since she is not ariadna regularly and was just checked this am. She is planning induction of labor at 39wks on Saturday. NST Reviewed and Verified by: Griselda Sutherland
[2024-04-21 18:24] VITALS: BP 123/75; PULSE 85; TEMP 37
[2024-04-21] MEDS: Ondansetron 4 MG/2 ML VIAL IVP (18:34)
[2024-04-21] MEDS: Normal Saline Flush 10 ML SYR IVP (18:35)
== END 2024-04-21 19:55 ==
LOC: BCD 16:13 → OBS 16:56
PROVIDERS: PCP Family Medicine; Visit Provider Obstetrics & Gynecology
DX: O26.893 Other specified pregnancy related conditions, third trimester (principal); R10.84 Generalized abdominal pain; O21.2 Late vomiting of pregnancy; Z3A.38 38 weeks gestation of pregnancy
CPT/HCPCS: 59025; 80053; 83690; 85027; 86850; 86900; 86901; 82150; 86870; J2405

== ENCOUNTER 2024-04-22 07:56 | Inpatient (IN) | payer MEDICAID, SELFPAY ==
[2024-04-22] VITALS (23 sets, daily range): BP systolic 110–127; BP diastolic 57–78; PULSE 63–136; RESP 18; TEMP 36.5; O2SAT 97–99; BMI 21.6
[2024-04-22] MEDS: Lactated Ringers 500 ML IV (03:25)
[2024-04-22] MEDS: Ondansetron 4 MG/2 ML VIAL IVP ×2 (03:35→13:45)
[2024-04-22] MEDS: Famotidine 20 MG/2 ML VIAL (04:00)
[2024-04-22] MEDS: Mylanta Suspension 30 ML CUP (04:04)
--- NOTE | 2024-04-22 04:39 | W.OBNST ---
Date of service: 04/22/24 Time of Service: 04:39 NST Evaluation Reason for NST Reasons for Nonstress Test: OTHER, SEE COMMENT (vomiting) Gestational Age Gestational Age in Weeks and Days: 38 Weeks and 5Days NST Evaluation FHR Baseline: 145 Variability: Moderate 6-25 bpm Accelerations: 15x15 Decelerations: None NST Results: Reactive Note Ultrasound Done: N/A. NST Note Note: Pt returned with vomiting again. +heme in the vomit. Given IV fluids, zofran, pepcid, viscous lidocaine in [place] with improvement in the vomiting. Still with irregular contractions. Will see if she can get some rest and reevaluate. NST Reviewed and Verified by: Griselda Sutherland
[2024-04-22] MEDS: Metoclopramide 10 MG/2 ML VIAL IVP (04:45)
[2024-04-22] MEDS: Lidocaine 2% Viscous 15 ML CUP (04:51)
--- NOTE | 2024-04-22 05:14 | NUR.NOTE ---
Nursing Note: pt had been discharged at 1950 last evening she had been given the choice to stay refused. 0315 returned to the hospital had buvket with hem posetive emesis in it provider notified nst was done reactive iv started iv fluid bolus given zofran iv given . dr gary consulting ed dr on gi cocktail . will continue to monitor.
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
[2024-04-22] MEDS: Ondansetron O.D.T. 4 MG TABEF PO (08:21)
[2024-04-22] MEDS: Oxytocin/Normal Saline 30 UNIT/500 ML BAG 2 UNITS IV (08:27)
[2024-04-22 09:18] LABS: Lab Add On Test DONE
[2024-04-22] MEDS: Lactated Ringers 1,000 ML 125 ML IV (10:11)
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
--- NOTE | 2024-04-22 10:47 | W.PM.OBNL1 ---
Date of service: 04/22/24 Time of Service: 10:47 Informed Consent Informed Consent: Regional Anesthesia and Risk,Benefits,Alternatives Discussed Contractions Monitor Mode: External Contraction Frequency(min): 3-4 Contraction Duration(sec): 50-60 Intensity: Mild/Moderate Fetus A Monitor: External (US) Heart Rate Baseline: 140 Presentation: Cephalic Variability: Moderate (6-25 BPM) Categories: Category I FHR Rhythm: Regular Characteristics: Normal Accelerations: 15 X 15 Decelerations: None Amniotic Membrane Status: Intact Assessment and Plan Assessment and plan (1) Encounter for induction of labor: Status: Acute Assessment and plan: anesthesia consulted and will attempt to place epidural. Continue Oxytocin infusion at current concentration. Objective Pulse Resp BP 74 18 123/57 L 04/22/24 07:43 04/22/24 03:30 04/22/24 07:43 Laboratory Results WBC Cancelled 04/22/24 07:56 RBC Cancelled 04/22/24 07:56 Hgb Cancelled 04/22/24 07:56 Hct Cancelled 04/22/24 07:56 MCV Cancelled 04/22/24 07:56 MCH Cancelled 04/22/24 07:56 MCHC Cancelled 04/22/24 07:56 RDW Cancelled 04/22/24 07:56 Plt Count Cancelled 04/22/24 07:56 MPV Cancelled 04/22/24 07:56 Add-On Test Request DONE 04/22/24 09:18 ABO/Rh Cancelled 04/22/24 07:56 Antibody Screen Cancelled 04/22/24 07:56 Objective Narrative Objective Narrative: Pt increasing uncomfortable with painful regular contractions. Oxytocin infusion 10mu/min. SVE deferred. Anesthesia service requested to place epidural. Pt is agreeable to the plan. Results Hemoglobin/Hematocrit: Hgb Cancelled 04/22/24 07:56 Hct Cancelled 04/22/24 07:56
[2024-04-22] MEDS: FentaNYL/ROPIvacaine 2 mcg/ml and 0.1% 200 ML CADD Cassette EP (11:16)
--- NOTE | 2024-04-22 11:36 | W.PM.OBNL1 ---
Date of service: 04/22/24 Time of Service: 11:36 Informed Consent Informed Consent: Regional Anesthesia and Risk,Benefits,Alternatives Discussed Pelvic Exam Dilation: 4 Effacement (%): 100 station: +1 Position: OA Cervix Position: mid Consistency: soft Vaginal Exam Presentation: Cephalic Contractions Monitor Mode: External Intensity: Moderate Fetus A Monitor: External (US) Heart Rate Baseline: 140 Presentation: Cephalic Variability: Moderate (6-25 BPM) Categories: Category I FHR Rhythm: Regular Characteristics: Normal Accelerations: 15 X 15 Decelerations: None Amniotic Membrane Status: Intact Assessment and Plan Assessment and plan (1) Encounter for induction of labor: Status: Acute Assessment and plan: Pt received epidural for labor analgesia. Currently experiencing sensation of contractions on R side of body. SVE performed. No AROM at this time. Pt informed that she is making progress. Objective Pulse Resp BP Pulse Ox 101 H 18 114/61 99 04/22/24 11:34 04/22/24 03:30 04/22/24 11:34 04/22/24 11:33 Laboratory Results WBC Cancelled 04/22/24 07:56 RBC Cancelled 04/22/24 07:56 Hgb Cancelled 04/22/24 07:56 Hct Cancelled 04/22/24 07:56 MCV Cancelled 04/22/24 07:56 MCH Cancelled 04/22/24 07:56 MCHC Cancelled 04/22/24 07:56 RDW Cancelled 04/22/24 07:56 Plt Count Cancelled 04/22/24 07:56 MPV Cancelled 04/22/24 07:56 Add-On Test Request DONE 04/22/24 09:18 ABO/Rh Cancelled 04/22/24 07:56 Antibody Screen Cancelled 04/22/24 07:56 Results Hemoglobin/Hematocrit: Hgb Cancelled 04/22/24 07:56 Hct Cancelled 04/22/24 07:56
--- NOTE | 2024-04-22 11:49 | W.ANESNEU ---
Epidural/Spinal Catheter Date Performed: 04/22/24 Procedure Start: 10:55 Procedure Stop: 11:51 Requesting Provider: Michaela Mason Procedure Location: Obstetrics Reason Performed: Labor Epidural Standard Monitors Applied: Blood Pressure, SpO2 and See EMR for corresponding vital signs Patient Position: Sitting Sedation Given (Indicate Dose Given): No Sedation given Patient Mental Status: Awake Sterility: Hand Hygiene, Surgical Cap, Surgical Mask, Sterile Gloves, Sterile Drape/Sheet and Chlorhexidine Procedure Location: L3-L4 Interspace Epidural Needle: Tuohy 18 Gauge Needle Length: 3.5 Inch Needle Approach: Midline Epidural Procedure: Skin Prepped, Sterile Drape Placed, 1% Lidocaine to skin and subcutaneous tissue with 25G needle, Tuohy Needle placed, JOSHUA to Saline Used, Epidural Catheter Placed, Positive Heme Noted (temporary, added 2ml NS to epidural space and no heme.) and Negative CSF Flow Catheter Placed?: Catheter Placed Test Dose (Indicate Dose Given): 3ml 1.5% Lidocaine with 1:200K Epinephrine Given and Negative Test Dose Loss of Resistance Depth (cm): 5 Catheter depth at skin (cm): 11 Dressing: [place] Dressing Placed, Mastisol Used and Dressing reinforced with Tape Epidural Provider Bolus (Indicate Dose Given): Total bolus dose given in 3-5 ml divided doses and Total Ropivacaine 0.1% with Fentanyl 2mcg/ml Given from pump. (ml) Dose:: 5ml x4 doses Additives (Indicate Dose Given ): None Infusion Medication: Medication Infusion Began Medication Infusion: Ropivacaine 0.1% with Fentanyl 2mcg/ml Maintenance Infusion Rate (ml/hour): 10 PCEA Bolus Dose (ml): 5 Post Procedure Pain score (0-10): 3 Block Level: N/A Paresthesia: None Ultrasound: Not Used Number of Attempts (See previous attempts in note section): 1 Procedure Tolerated: No Complications and Patient tolerated well Procedure Outcome: Successful Procedure Comment:: Noted scoliosis and spinous processes easily palpated. Pt. quite uncomfortable during placement, tolerated placement well. Catheter initially placed with some heme noted, gave additional 2ml NS and catheter advanced with ease and no heme. Negative test dose. Total of 10ml given with left side pain relief and almost no relief on right. Next 5ml bolus with slight improvement and last 5ml bolus with pt. right side down with pain to tolerable level with pt. closing eyes and attempting to sleep. I will reassess in 30-60 minutes to assess comfort. PCEA education completed. Discussed if epidural is patchy, could pull catheter back 1 cm, add nitrous, or attempt epidural at different space. All questions answered. Performed By: Carson Smith
--- NOTE | 2024-04-22 14:02 | W.ANESPOSTOP ---
Postoperative Evaluation Date, Time and Location Date Performed: 04/22/24 Time Performed: 14:02 Patient Location: Obstetrics Vital Signs Most Recent Imported Vital Signs: Most Recent Vital Signs Pulse Resp BP Pulse Ox 79 18 110/59 L 98 04/22/24 11:48 04/22/24 03:30 04/22/24 11:42 04/22/24 11:48 Pain Score Most Recent Pain Score: Most Recent Pain Score Pain Level 10 04/23/24 12:22 Assessment Mental Status: Awake (Alert & Oriented to Patient Baseline) Airway and Respiratory Function: Patent airway with normal (patient baseline) respiratory exam Cardiovascular Function: Hemodynamically Stable Hydration Status: Adequately Hydrated Nausea & Vomiting: No Nausea or Vomiting Pain: Pain is Moderate or Severe Postoperative Pain Management: Ongoing pain, patient will be managed as an inpatient (Patient being managed with PO Oxycodone and Tylenol at this time) Peripheral Nerve Block: Patient did not receive a nerve block Postoperative Comments:: Per RN patient possibly broke her tailbone during delivery. Patient seen in room, seated in bed with infant and family member at bedside. Per patient has right sided sciatic pain, which is to her baseline, and otherwise is currently fine. Full CMS, Epidural removed with tip intact per RN. Patient with otherwise normal and full CMS. Patient did report being unhappy with the level of adhesive still on her back. I forwarded this to nursing who will address.
--- NOTE | 2024-04-22 14:22 | W.PM.OBNL1 ---
Date of service: 04/22/24 Time of Service: 14:22 Informed Consent Informed Consent: Regional Anesthesia and Risk,Benefits,Alternatives Discussed Pelvic Exam Dilation: 7 Effacement (%): 100 station: +2 Position: OA Cervix Position: mid Consistency: soft Vaginal Exam Presentation: Cephalic Pooling: Positive Comments: particulate meconium Contractions Monitor Mode: External Contraction Frequency(min): 3 Contraction Duration(sec): 50 Intensity: Moderate Fetus A Monitor: External (US) Heart Rate Baseline: 140 Presentation: Cephalic Variability: Moderate (6-25 BPM) Categories: Category I FHR Rhythm: Regular Characteristics: Normal Accelerations: 15 X 15 Decelerations: None Amniotic Membrane Status: Ruptured Rupture Method: Spontaneous Amniotic Fluid: Meconium (particulate) Date of Membrane Rupture: 04/22/24 Time of Membrane Rupture: 14:24 Assessment and Plan Assessment and plan (1) Encounter for induction of labor: Status: Acute Assessment and plan: Satisfactory labor progress. Will continue to follow. Epidural providing less pain relief. Will reposition pt and notify anesthesia if not more comfortable. Objective Pulse Resp BP Pulse Ox 76 18 116/68 98 04/22/24 14:21 04/22/24 03:30 04/22/24 14:21 04/22/24 11:48 Laboratory Results WBC Cancelled 04/22/24 07:56 RBC Cancelled 04/22/24 07:56 Hgb Cancelled 04/22/24 07:56 Hct Cancelled 04/22/24 07:56 MCV Cancelled 04/22/24 07:56 MCH Cancelled 04/22/24 07:56 MCHC Cancelled 04/22/24 07:56 RDW Cancelled 04/22/24 07:56 Plt Count Cancelled 04/22/24 07:56 MPV Cancelled 04/22/24 07:56 Add-On Test Request DONE 04/22/24 09:18 ABO/Rh Cancelled 04/22/24 07:56 Antibody Screen Cancelled 04/22/24 07:56 Subjective Patient Reports: New Complaints Interval history since last seen: SROM with increased pelvic pain and intensity of contractions. Results Hemoglobin/Hematocrit: Hgb Cancelled 04/22/24 07:56 Hct Cancelled 04/22/24 07:56
[2024-04-22] MEDS: Normal Saline 10 ML VIAL IJ (15:04)
[2024-04-22] MEDS: Pantoprazole 40 MG VIAL IVP (15:04)
[2024-04-22] MEDS: Dibucaine 1% 28 GM TUBE TP (18:10)
[2024-04-22] MEDS: Famotidine 20 MG/2 ML VIAL IVP (18:10)
[2024-04-22] MEDS: Acetaminophen 325 MG TAB 650 MG PO ×2 (18:11→22:15)
[2024-04-22] MEDS: Hamamelis Leaf/Glycerin 100 EACH BOX PR (18:11)
[2024-04-22] MEDS: oxyCODONE 5 MG TAB PO (20:05)
[2024-04-23] MEDS: oxyCODONE 5 MG TAB PO ×2 (00:51→12:22)
--- NOTE | 2024-04-23 07:40 | W.OBDELIVERY ---
Date of service: 04/23/24 Time of Service: 07:41 OB Labor/ Delivery Information Baby A Delivery Delivery Method: Assisted (vacuum assisted vaginal delivery ) Presentation: Cephalic Cephalic Position: Vertex Breech Position: N/A Cord Description-Baby A: 3 Vessels Amniotic Fluid: Meconium Estimated Blood Loss: 100 Delivery Outcome: Liveborn Transferred: Remains with Mother Providers Doctor: Michaela Mason Vascular Technologist: Carson Smith Economic History Teacher: Olga Calvo Nurse: Paloma Eubanks Nurse: Tong Davis Labor/Delivery Information Number of Babies in Womb: 1 Steroids Given: None Reason Steroids Not Administered: N/A Group Beta Strep: Negative Antibiotics Administered: No Rubella Status: Equivocal (testing not listed) Blood Type: O- Varicella Immunity: Immune Shoulder Dystocia: No Stages of Labor Onset of Labor Date: 04/22/24 Onset of Labor Time: 10:00 Complete Dilatation Date: 04/22/24 Complete Dilatation Time: 15:30 Labor - Stage 1 Duration: 5 hours and 30 minutes ROM Baby A: 04/22/24 ROM Baby A: 14:00 ROM Total Time- Baby A: [id number] Infant Delivery Date-Baby A: 04/22/24 Delivery Time-Baby A: 16:35 Labor Stage 2 Duration: 1 hours and 5 minutes Placenta Delivery Date-Baby A: 04/22/24 Placenta Delivery Time-Baby A: 16:40 Labor-Stage 3 Duration: 5 minutes Total Length of Labor-Baby A: 6 hours and 35 minutes Placenta Cultured: No Placenta Status: Delivered Baby A Gender: Female Gestational Status: Early Term (37-38.6 wks) Gestational Age in Weeks/Days: 38 Weeks and 5 Days weight: 6 lb 13 oz Score-1 Minute Interval(Baby A) Heart Rate-1 minute: 100 BPM or Greater Respiratory Effort- 1 minute: Spontaneous/Strong Cry Muscle Tone-1 minute: Active Movement Reflex Response-1 minute: Prompt Response Color-1 minute: Bluish Hands or Feet Total Score-1 minute: 9 Score-5 Minute Interval(Baby A) Heart Rate- 5 minute: 100 BPM or Greater Respiratory Effort-5 minute: Spontaneous/Strong Cry Muscle Tone-5 minute: Active Movement Reflex Response-5 minute: Prompt Response Color-5 minute: Bluish Hands or Feet Total Score- 5 minute: 9 Interventions Induction Indication: Other (Maternal N/V 48hr prior to planned Oxytocin IOL - induction moved up ), Type of Induction: Pitocin rate at(mU/min): 6 Oxytocin infusion titrated according to protocol. .,/ Repair of Laceration Type: Other (R labial repaired with 3-0 Vicryl after infiltration with 1% Lidocaine), Laceration Extension: N/A. Sponge Count Correct: Yes, Sharp Count Correct: Yes./ Assisted Delivery Baby A , Type of Assisted Delivery: Vacuum Indication for Vacuum Assisted Delivery: Maternal Exhaustion, Date Applied: 04/22/24, Time of Application: 16:20, Reduction of Pressure Between Contractions: Yes, Number of Pulls: 3 (3 pulls over 3 contractions. vertex descended from +3 to +4 station allowing for improved maternal expulsive efforts), Number of Pop Offs: 2, Number of Contractions: 3 Total Minutes Vacuum Applied: 3. After vertex brought one final application of Kiwi vacuum was attempted. However as the device was placed pt was able to successully deliver head over intact perineum followed by shoulders and trunk. Pt declined to have infant placed on her chest. Cord was doubly clamped and cut and brought to warmer. Cord blood was collected for lab. :
[2024-04-23 07:50] VITALS: BP 112/70; PULSE 65; RESP 14; TEMP 36.7
[2024-04-23 12:14] LABS: Rubella IgG Ab (UVM) Equivocal (See Note)
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
[2024-04-23] MEDS: RHO(D) Immune Globulin 1,500 UNIT Syringe 1500 UNIT IM (12:54)
[2024-04-23] MEDS: Ibuprofen 600 MG TAB PO (15:29)
[2024-04-23] MEDS: Acetaminophen 325 MG TAB 650 MG PO (15:29)
[2024-04-23 15:43] VITALS: BP 120/65; PULSE 65; RESP 16; TEMP 36.5; O2SAT 99
== END 2024-04-23 19:00 | disposition home or self-care (01) | DRG 806 ==
LOC: BCD 08:42 → OBS 08:42
PROVIDERS: Admitting Provider Obstetrics & Gynecology Gynecology; PCP Family Medicine; Visit Provider Obstetrics & Gynecology Gynecology
DX: O36.5930 Maternal care for other known or suspected poor fetal growth, third trimester, not applicable or unspecified (principal); K50.90 Crohn's disease, unspecified, without complications; Z37.0 Single live birth; O33.0 Maternal care for disproportion due to deformity of maternal pelvic bones; O99.354 Diseases of the nervous system complicating childbirth; Z59.01 Sheltered homelessness; K92.0 Hematemesis; O99.12 Other diseases of the blood and blood-forming organs and certain disorders involving the immune mechanism complicating childbirth; O26.893 Other specified pregnancy related conditions, third trimester; Z67.91 Unspecified blood type, Rh negative; Z3A.38 38 weeks gestation of pregnancy; M41.115 Juvenile idiopathic scoliosis, thoracolumbar region; O99.62 Diseases of the digestive system complicating childbirth; O99.02 Anemia complicating childbirth; D64.9 Anemia, unspecified; O26.13 Low weight gain in pregnancy, third trimester; G43.809 Other migraine, not intractable, without status migrainosus; M54.9 Dorsalgia, unspecified; J45.909 Unspecified asthma, uncomplicated; D89.89 Other specified disorders involving the immune mechanism, not elsewhere classified; F41.8 Other specified anxiety disorders; O99.344 Other mental disorders complicating childbirth; O99.334 Smoking (tobacco) complicating childbirth; F17.290 Nicotine dependence, other tobacco product, uncomplicated; O77.0 Labor and delivery complicated by meconium in amniotic fluid; O70.0 First degree perineal laceration during delivery; O99.52 Diseases of the respiratory system complicating childbirth
CPT/HCPCS: 36415; 85027; 85461; 86850; 86900; 86901; 90384; 86762; J2405; J2470; J2765; J2790

== ENCOUNTER 2024-05-15 08:26 | Emergency (ER) | payer MEDICAID, SELFPAY ==
[2024-05-15 08:43] VITALS: BP 107/83; PULSE 103; RESP 18; TEMP 36.9; O2SAT 97
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
== END 2024-05-15 09:06 | disposition home or self-care (01) ==
PROVIDERS: Emergency Provider Emergency Medicine; PCP Family Medicine
DX: J06.9 Acute upper respiratory infection, unspecified (principal); R05.1 Acute cough; R07.0 Pain in throat
CPT/HCPCS: 99283

== ENCOUNTER 2024-07-04 18:15 | Emergency (ER) | payer MEDICAID, SELFPAY ==
[2024-07-04 18:17] VITALS: BP 133/84; PULSE 98; RESP 16; TEMP 36.6; O2SAT 98
[2024-07-04 18:19] VITALS: BP 133/84; PULSE 98; RESP 16; TEMP 36.6; O2SAT 98
--- NOTE | 2024-07-04 18:30 | DI.CT_ITS ---
Exam(s) CT ABDOMEN PELVIS W EXAM: CT ABDOMEN PELVIS W CLINICAL HISTORY: lower abdominal pain. TECHNIQUE: Imaging Protocol: Axial computed tomography images with coronal and sagittal reformatted images were created and reviewed CONTRAST MATERIAL: Intravenous: Omnipaque 350 Contrast volume:70 ml Oral: no COMPARISON: CT CT ABDOMEN PELVIS WO from 03/23/[address] CHEST PE CTA from 04/01/2022 FINDINGS: ABDOMEN and PELVIS: Lung Bases: No acute findings. Liver: Normal density. No suspicious mass. Gallbladder and biliary tract: No radiodense calculus. No wall thickening or pericholecystic fluid. No biliary dilation. Pancreas: Normal density. No abnormal calcifications or inflammatory process. No evidence of mass. Spleen: Normal. Kidneys: Normal size, contour and axis. No radiodense stones. No obstructive uropathy. No suspicious masses seen. Adrenal glands: No masses seen. Vasculature: Abdominal aorta non-dilated. Soft tissues: Unremarkable. Bladder: No gross wall thickening. No calculi.No focal mass. Bowel: No obstruction. No bowel wall thickening. Appendix normal. Moderate to increased quantity o f stool. Peritoneal cavity: No ascites. No focal collection. No mesenteric inflammatory response. No free air . Bones: Scoliosis. Reproductive organs: Unremarkable. Left ovarian for follicle. Lymph nodes: No pathologically enlarged lymph nodes. IMPRESSION:: No acute abnormality in the abdomen or pelvis. RADIATION DOSE DELIVERED: Total DLP DATA REPOSITORY: All CT scans at this facility are submitted to the National Radiology Data Registry (NRDR) Dose Index Registry (DIR) with the [employer] (ACR). RADIATION OPTIMIZATION: All CT scans at this facility use at least one of these dose optimization te chniques: automated exposure control; mA and/or kV adjustment per patient size (includes targeted exa ms where dose is matched to clinical indication); or iterative reconstruction.
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
[2024-07-04] MEDS: Droperidol 5 MG/2 ML VIAL 1.25 MG IVP (18:48)
[2024-07-04] MEDS: Ketorolac 15 MG/ML VIAL IVP (18:48)
[2024-07-04 18:57] LABS: Abs Immature Grans 0.02 10^3/uL (0.0-0.06); Absolute Basophil Count 0.08 10^3/uL (0.0-0.2); Absolute Eosinophil Count 0.22 10^3/uL (0.0-0.7); Absolute Lymphocyte Count 2.44 10^3/uL (1.2-3.4); Absolute Monocyte Count 0.62 10^3/uL (0.1-0.8); Basophils % 0.9 %; Eosinophils % 2.6 %; Immature Grans % 0.2 %; Lymphocytes % 28.8 %; MCH 26.1 pg (27.0-33.0); MCHC 31.7 % (32.0-36.0); MCV 82 fL (80-95); Monocytes % 7.3 %; Neutrophils % 60.2 %; Platelet Count 284 10^3/uL (130-400); RBC 4.98 10^6/uL (3.93-5.22); RDW 14.6 % (11.7-14.6); RDW-SD 43.8 fL; WBC 8.48 10^3/uL (4.4-10.8)
[2024-07-04 18:57] LABS: Bilirubin Negative (Negative); Blood Negative (Negative); Clarity Clear (Clear); Glucose Negative (Negative); Ketones Negative (Negative); Leukocyte Esterase Negative (Negative); Nitrite Negative (Negative); Urobilinogen 0.2 mg/dL (Up to 0.2); pH 7.5 (5-8)
[2024-07-04] MEDS: Omnipaque 350 MG/ML 100 ML BTL IJ (19:09)
[2024-07-04] MEDS: Normal Saline - Diluent 50 ML VIAL IJ (19:10)
[2024-07-04 19:18] LABS: ALT 25 U/L (14-59); AST 13 U/L (15-37); Albumin 3.7 g/dL (3.4-5.0); Alkaline Phosphatase 91 U/L (46-116); Anion Gap 7.9 mmol/L (3-11); BUN 8 mg/dL (7-18); Bilirubin, Total 0.3 mg/dL (0.2-1.0); CO2 29.1 mmol/L (21.0-32.0); CREATININE 0.6 mg/dL (0.55-1.02); Chloride 104 mmol/L (98-107); Glucose 103 mg/dL (74-106); Lipase 38 U/L (<78); Magnesium 1.9 mg/dL (1.8-2.4); Potassium 3.6 mmol/L (3.5-5.1); Sodium 141 mmol/L (136-145); Total Protein 7.2 g/dL (6.4-8.2)
[2024-07-04 19:53] VITALS: BP 105/61; PULSE 75; RESP 17; TEMP 36.6; O2SAT 99
[2024-07-04 19:57] VITALS: BP 105/61; PULSE 75; RESP 17; TEMP 36.6; O2SAT 99
--- NOTE | 2024-07-04 20:25 | DI.VRAD_ITS ---
PROCEDURE INFORMATION: Exam: CT Abdomen And Pelvis With Contrast Exam date and time: 07/04/2024 7:07 PM Age: 18 years old Clinical indication: Localized; Lower abdominal pain TECHNIQUE: Imaging protocol: Computed tomography of the abdomen and pelvis with contrast COMPARISON: CT ABDOMEN PELVIS WO 03/23/2022 9:15 AM FINDINGS: Liver: Normal. No mass. Gallbladder and biliary ducts: Gallbladder contracted. Pancreas: Normal. No ductal dilation. Spleen: Normal. No splenomegaly. Adrenal glands: Normal. No mass. Kidneys and ureters: Normal. No hydronephrosis. Stomach and bowel: Moderate fecal retention pattern. No abnormal bowel distension or wall thickening. Appendix: No evidence of appendicitis. Intraperitoneal space: Unremarkable. No free air. No significant fluid collection. Vasculature: Unremarkable. No abdominal aortic aneurysm. Lymph nodes: Unremarkable. No enlarged lymph nodes. Urinary bladder: Bladder is not well distended. Reproductive: Low-density left ovarian lesion 2.5 cm, probable small cyst. Bones/joints: There is levoscoliosis of the thoracolumbar junction. Soft tissues: Unremarkable. IMPRESSION: Probable small left ovarian cyst. No additional acute abnormality seen. Dictated and Authenticated by: Veronica Pemberton MD. Orderin Mian Olsen MD
== END 2024-07-04 19:57 | disposition left against medical advice (07) ==
PROVIDERS: Emergency Provider Emergency Medicine; PCP Family Medicine
DX: R10.31 Right lower quadrant pain (principal); R11.0 Nausea; F17.290 Nicotine dependence, other tobacco product, uncomplicated; Z53.29 Procedure and treatment not carried out because of patient's decision for other reasons
CPT/HCPCS: 36415; 80053; 81025; 83690; 96374; 96375; 99285; 74177; 81003; 83735; 85025; J1790; J1885; J3490

== ENCOUNTER 2024-09-25 06:45 | Emergency (ER) | payer MEDICAID, SELFPAY ==
[2024-09-25] VITALS (8 sets, daily range): BP systolic 115–148; BP diastolic 51–93; PULSE 50–121; RESP 20; O2SAT 98–100
[2024-09-25] MEDS: Lactated Ringers 500 ML 1000 ML IV (07:31)
[2024-09-25] MEDS: Ondansetron 4 MG/2 ML VIAL IVP (07:37)
[2024-09-25 07:40] LABS: Abs Immature Grans 0.01 10^3/uL (0.0-0.06); Absolute Basophil Count 0.07 10^3/uL (0.0-0.2); Absolute Eosinophil Count 0.21 10^3/uL (0.0-0.7); Absolute Lymphocyte Count 1.69 10^3/uL (1.2-3.4); Absolute Monocyte Count 0.36 10^3/uL (0.1-0.8); Absolute Neutrophil Count 3.02 10^3/uL (1.2-6.7); Basophils % 1.3 %; Eosinophils % 3.9 %; HCT 41.8 % (36.0-46.0); HGB 13.5 g/dL (11.2-15.7); Immature Grans % 0.2 %; Lymphocytes % 31.5 %; MCH 26.3 pg (27.0-33.0); MCHC 32.3 % (32.0-36.0); MCV 82 fL (80-95); MPV 9.4 fL (8.0-11.0); Monocytes % 6.7 %; Neutrophils % 56.4 %; Platelet Count 267 10^3/uL (130-400); RBC 5.13 10^6/uL (3.93-5.22); RDW 14.2 % (11.7-14.6); RDW-SD 41.1 fL; WBC 5.36 10^3/uL (4.4-10.8)
[2024-09-25 08:05] LABS: ALT 20 U/L (14-59); AST 13 U/L (15-37); Albumin 4.3 g/dL (3.4-5.0); Alkaline Phosphatase 71 U/L (46-116); Anion Gap 12.9 mmol/L (3-11); BUN 8 mg/dL (7-18); Bilirubin, Total 0.6 mg/dL (0.2-1.0); CO2 23.1 mmol/L (21.0-32.0); CREATININE 0.8 mg/dL (0.55-1.02); Calcium 9.1 mg/dL (8.5-10.1); Chloride 103 mmol/L (98-107); Estimated GFR 107.44 (mL/min/1.73m2); Glucose 118 mg/dL (74-106); HCG Quant, Pregnancy < 1 mIU/mL (1-3); Potassium 3.6 mmol/L (3.5-5.1); Sodium 139 mmol/L (136-145); Total Protein 7.5 g/dL (6.4-8.2)
[2024-09-25] MEDS: ACETAMINOPHEN 500 MG/50 ML BAG 200 MG IVPB (08:16)
[2024-09-25] MEDS: Ketorolac 15 MG/ML VIAL IVP (08:16)
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
--- NOTE | 2024-09-25 09:30 | DI.US_ITS ---
Exam(s) US PELVIS TRANSVAGINAL EXAM: US PELVIS TRANSVAGINAL CLINICAL HISTORY: pelvic pain, bleeding TECHNIQUE: Ultrasound of the pelvis was performed both transabdominal and transvaginal. COMPARISON: No exams were available for comparison FINDINGS: UTERUS: Nongravid and anteverted Measures 8 cm length x 3 cm AP x 4.4 cm wide. There are no uterine fibroids. Endometrial thickness measures 5-6 mm. There is no fluid in the endometrial canal. CERVIX: There are no obvious nabothian cysts. RIGHT OVARY: Measures 4.1 x 3.7 x 1.9 cm. Contains multiple sub cm follicular cysts. No significant cysts nor masses evident in the right ovary. Satisfactory blood flow LEFT OVARY: Measures 3.4 x 3.0 x 2.2 cm. Contains multiple sub cm follicular cysts. No significant cysts nor masses evident in the left ovary. Satisfactory blood flow CUL-DE-SAC: No free fluid evident. IMPRESSION: 1. Normal appearing uterus and age-appropriate endometrium. 2. No abnormal ovarian findings. There are multiple sub cm follicular cysts in both ovaries. No dominant cyst evident. No extraovarian adnexal masses. 3. There is a tiny amount of free fluid in the cul-de-sac. DATA REPOSITORY:
[2024-09-25] MEDS: HYDROmorphone 2 MG/ML SYR 1 MG IVP (10:29)
--- NOTE | 2024-09-25 11:00 | DI.CT_ITS ---
Exam(s) CT ABDOMEN PELVIS W EXAM: CT ABDOMEN PELVIS W CLINICAL HISTORY: ABDOMINAL PAIN SEVERE LOWER. TECHNIQUE: Imaging Protocol: Axial computed tomography images with coronal and sagittal reformatted images were created and reviewed CONTRAST MATERIAL: Intravenous: Omnipaque-350 100cc Oral: None COMPARISON: CT CT ABDOMEN PELVIS W from 07/04/2024 FINDINGS: VISUALIZED LUNG BASES: No nodules nor pleural effusions evident. ABDOMEN: There is no ascites. LIVER: There are no focal hepatic lesions evident. No dilated intrahepatic ducts. GALLBLADDER/BILIARY: No obvious gallbladder pathology. CBD is not dilated. PANCREAS: No evidence of pancreatic mass nor dilatation of the pancreatic duct. SPLEEN: Spleen is not enlarged. No obvious intrasplenic lesions. Splenic and portal veins are patent. ADRENALS: There are no significant adrenal masses. KIDNEYS:No cysts evident. No solid renal masses. No calculi nor hydronephrosis.. ABDOMINAL AORTA: Abdominal aorta is not enlarged. LYMPH NODES:There is no retroperitoneal nor paraaortic adenopathy. ABDOMINAL WALL: No evidence of significant anterior abdominal wall nor inguinal hernia. GI: There is no evidence of bowel obstruction, free air, nor abscess. PELVIS: GI: Appendix is not identified as a separate structure but there are no obvious signs of appendicitis.No evidence of sigmoid diverticulitis. LYMPH NODES: There is no intrapelvic nor inguinal adenopathy. REPRODUCTIVE: Uterus appears unremarkable. There are multiple small sub cm follicles in both ovaries. There no extraovarian adnexal masses. No free fluid. URINARY BLADDER: No calculi nor obvious masses evident OSSEOUS: No fractures and no significant osseous lesions. There is a tiny amount of free fluid in the left side of the cul-de-sac. IMPRESSION: 1. No acute findings in the abdomen pelvis. 2. Appendix is not seen but there are no secondary signs of acute appendicitis. 3. There are multiple small follicles in both ovaries 4. Tiny amount of free fluid in the cul-de-sac, probably female physiologic. Report called to ER physician 09/25/2024 at 11:15 a.m.. RADIATION DOSE DELIVERED: 207.69mGy.cm Total DLP DATA REPOSITORY: All CT scans at this facility are submitted to the National Radiology Data Registry (NRDR) Dose Index Registry (DIR) with the [employer] ([employer]). RADIATION OPTIMIZATION: All CT scans at this facility use at least one of these dose optimization techniques: automated exposure control; mA and/or kV adjustment per patient size (includes targeted exams where dose is matched to clinical indication); or iterative reconstruction.
[2024-09-25] MEDS: Normal Saline - Diluent 50 ML VIAL IJ (11:03)
[2024-09-25] MEDS: Omnipaque 350 MG/ML 500 ML BTL-Imaging package 75 ML IJ (11:04)
== END 2024-09-25 12:43 | disposition home or self-care (01) ==
PROVIDERS: Emergency Provider Student in an Organized Health Care Education/Training Program; PCP Family Medicine
DX: R11.2 Nausea with vomiting, unspecified; R10.2 Pelvic and perineal pain; N93.9 Abnormal uterine and vaginal bleeding, unspecified; Z87.19 Personal history of other diseases of the digestive system
CPT/HCPCS: 99284; 99285; 96374; 96375; 81025; 80053; 86850; 86900; 86901; 74177; 76830; 76856; 84702; 85025; 86870; J0131; J1171; J1885; J2405

== ENCOUNTER 2024-12-30 18:51 | Emergency (ER) | payer MEDICAID, SELFPAY ==
[2024-12-30 19:10] VITALS: BP 110/69; PULSE 90; RESP 16; TEMP 36.6; O2SAT 97
--- NOTE | 2024-12-30 19:15 | DI.RAD_ITS ---
Exam(s) XR FOOT LT COMPLETE EXAM: XR FOOT LT COMPLETE CLINICAL HISTORY: Pain. TECHNIQUE: 2D digital imaging was performed of the left foot. Three images were obtained. AP, oblique and lateral views were obtained. COMPARISON: CR RIGHT FOOT COMPLETE from 06/24/2014 FINDINGS: BONES: No acute fracture is present. No bony destructive lesion is seen. JOINTS: No dislocation present. SOFT TISSUE: There is soft tissue swelling lateral to the 5th metatarsophalangeal joint. No soft tissue gas is seen. This may reflect a bunionette deformity. Trauma cannot be excluded. Please correlate clinically. IMPRESSION: 1. There is no acute fracture or dislocation. 2. The preliminary [facility] report was reviewed. DATA REPOSITORY: RADIATION DOSE DELIVERED:
--- NOTE | 2024-12-30 21:13 | DI.[facility]_ITS ---
PROCEDURE INFORMATION: Exam: XR Left Foot Exam date and time: 12/30/2024 7:49 PM Age: 19 years old Clinical indication: Pain; Foot; Left TECHNIQUE: Imaging protocol: Radiologic exam of the left foot. Views: 3 or more views. COMPARISON: CR XR FOOT LT COMPLETE 06/06/2020 12:17 PM FINDINGS: Bones/joints: Normal. Soft tissues: Soft tissue prominence lateral to the metatarsophalangeal joint. No soft tissue gas or radiopaque foreign body. IMPRESSION: 1. No acute osseous abnormality. 2. Soft tissue bunionette or posttraumatic soft tissue swelling lateral to the 5th metatarsophalangeal joint. Dictated and Authenticated by: Asael Tejeda MD. Orderin Tasia Ellison MD
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
[2024-12-30] MEDS: Ibuprofen 600 MG TAB PO (22:09)
== END 2024-12-30 22:09 | disposition home or self-care (01) ==
PROVIDERS: Emergency Provider Registered Nurse Emergency; PCP Family Medicine
DX: M72.2 Plantar fascial fibromatosis (principal); F17.290 Nicotine dependence, other tobacco product, uncomplicated
CPT/HCPCS: 81025; 99284; 73630

== ENCOUNTER 2025-01-28 09:25 | Emergency (ER) | payer MEDICAID, SELFPAY ==
[2025-01-28 09:29] VITALS: BP 111/77; PULSE 79; RESP 16; TEMP 36.4; O2SAT 98
--- NOTE | 2025-01-28 09:48 | DI.CT_ITS ---
Exam(s) CT ABDOMEN PELVIS W EXAM: CT ABDOMEN PELVIS W CLINICAL HISTORY: lower abd pain. TECHNIQUE: Imaging Protocol: Axial computed tomography images with coronal and sagittal reformatted images were created and reviewed CONTRAST MATERIAL: Intravenous: Omnipaque 350 Contrast volume:61 ml Oral: no COMPARISON: CT CT ABDOMEN PELVIS W from 09/25/2024 FINDINGS: ABDOMEN and PELVIS: Lung Bases: No acute findings. Liver: Normal density. No suspicious mass. Gallbladder and biliary tract: No radiodense calculus. No wall thickening or pericholecystic fluid. No biliary dilation. Pancreas: Normal density. No abnormal calcifications or inflammatory process. No evidence of mass. Spleen: Normal. Kidneys: Normal size, contour and axis. No radiodense stones. No obstructive uropathy. No suspicious masses seen. Adrenal glands: No masses seen. Vasculature: Abdominal aorta non-dilated. Soft tissues: Unremarkable. Bladder: No gross wall thickening. No calculi.No focal mass. Bowel: No obstruction. No bowel wall thickening. Appendix normal. Normal quantity of stool. Peritoneal cavity: Small amount of fluid in the cul-de-sac. No focal collection. No mesenteric inflammatory response. No free air. Bones: Thoracolumbar scoliosis. No acute abnormality. Reproductive organs: 2 cm dominant follicle in the left ovary. Lymph nodes: No pathologically enlarged lymph nodes. IMPRESSION:: No acute abnormality in the abdomen or pelvis. RADIATION DOSE DELIVERED: 194.11mGy.cm Total DLP DATA REPOSITORY: All CT scans at this facility are submitted to the National Radiology Data Registry (NRDR) Dose Index Registry (DIR) with the [employer] (ACR). RADIATION OPTIMIZATION: All CT scans at this facility use at least one of these dose optimization techniques: automated exposure control; mA and/or kV adjustment per patient size (includes targeted exams where dose is matched to clinical indication); or iterative reconstruction.
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
[2025-01-28 10:14] LABS: Abs Immature Grans 0.01 10^3/uL (0.0-0.06); HCT 41.2 % (36.0-46.0); HGB 13.2 g/dL (11.2-15.7); Immature Grans % 0.2 %; MCH 27.3 pg (27.0-33.0); MCHC 32.0 % (32.0-36.0); MCV 85 fL (80-95); MPV 9.1 fL (8.0-11.0); Platelet Count 222 10^3/uL (130-400); RBC 4.84 10^6/uL (3.93-5.22); RDW 13.4 % (11.7-14.6); RDW-SD 41.8 fL; WBC 6.62 10^3/uL (4.4-10.8)
[2025-01-28 10:17] LABS: Glucose Negative (Negative)
[2025-01-28 10:24] LABS: C & S Indicated? No; RBC Negative HPF (0-2); WBC Negative HPF (0-5)
[2025-01-28 10:29] LABS: ALT 30 U/L (14-59); AST 17 U/L (15-37); Albumin 3.8 g/dL (3.4-5.0); Alkaline Phosphatase 78 U/L (46-116); Anion Gap 8.6 mmol/L (3-11); BUN 11 mg/dL (7-18); Bilirubin, Total 0.4 mg/dL (0.2-1.0); CO2 28.4 mmol/L (21.0-32.0); Calcium 8.5 mg/dL (8.5-10.1); Chloride 103 mmol/L (98-107); Estimated GFR 130.88 (mL/min/1.73m2); Glucose 85 mg/dL (74-106); Lipase 21 U/L (<78); Magnesium 2.0 mg/dL (1.8-2.4); Potassium 3.6 mmol/L (3.5-5.1); Sodium 140 mmol/L (136-145); Total Protein 6.8 g/dL (6.4-8.2)
[2025-01-28 10:30] VITALS: BP 124/77; PULSE 71
[2025-01-28] MEDS: Normal Saline Flush 10 ML SYR IVP (11:24)
[2025-01-28] MEDS: Omnipaque 350 MG/ML 100 ML BTL IJ (11:26)
[2025-01-28] MEDS: Normal Saline - Diluent 50 ML VIAL IJ (11:26)
[2025-01-28 12:01] VITALS: BP 125/90; PULSE 67; O2SAT 100
[2025-01-28] MEDS: Ketorolac 15 MG/ML VIAL IVP (12:06)
== END 2025-01-28 12:15 | disposition home or self-care (01) ==
PROVIDERS: Emergency Provider Registered Nurse Emergency; PCP Family Medicine
DX: N83.202 Unspecified ovarian cyst, left side (principal)
CPT/HCPCS: 99285; 99284; 36415; 81025; 96374; 80053; 83690; 74177; 81003; 81015; 83735; 85025; J1885; J3490

== ENCOUNTER 2025-02-11 22:08 | Emergency (ER) | payer MEDICAID, SELFPAY ==
[2025-02-11 22:13] VITALS: BP 129/72; PULSE 78; RESP 18; TEMP 36.2; O2SAT 97
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
[2025-02-11 23:41] VITALS: PULSE 62; RESP 18; TEMP 37; O2SAT 97
== END 2025-02-11 23:41 | disposition home or self-care (01) ==
PROVIDERS: Emergency Provider Emergency Medicine Emergency Medical Services; PCP Family Medicine
DX: J06.9 Acute upper respiratory infection, unspecified (principal)
CPT/HCPCS: 99282

== ENCOUNTER 2025-02-14 18:38 | Emergency (ER) | payer MEDICAID, SELFPAY ==
[2025-02-14] VITALS (15 sets, daily range): BP systolic 137; BP diastolic 85; PULSE 78–138; RESP 12–26; TEMP 37.5; O2SAT 94–99
--- NOTE | 2025-02-14 18:30 | RT.EKG_ITS ---
APPROVED REPORT Exam: Resting ECG Reason for Exam: chest pain Patient Location: E HR:99 bpm ECG Measurements Heart Rate 99 AXIS MD 122 P 81 QRSd 70 QRS 58 QT 319 T -19 QTc 410 Conclusion Sinus rhythm...normal P axis, V-rate 60- 99 Borderline T abnormalities, diffuse leads...T flat/neg No STEMI
--- NOTE | 2025-02-14 18:45 | DI.RAD_ITS ---
Exam(s) XR CHEST 2V PA LATERAL EXAM: XR CHEST 2V PA LATERAL CLINICAL HISTORY: cough TECHNIQUE: 2D digital imaging was performed of the chest. Two images were obtained. PA and lateral views were obtained. COMPARISON: CR,XR XR CHEST 1V IN DI DEPT from 12/31/2021 CR,XR XR PORTABLE CHEST AP from 03/31/2022 FINDINGS: MEDIASTINUM: Normal. HEART: Normal. PULMONARY VASCULATURE: Normal. LUNGS: Clear. PLEURAL SPACE: No pleural effusion or pneumothorax. BONE:Within normal limits for the patient's age. There is again seen an S-type thoracolumbar scoliosis. OTHER FINDINGS:Normal. IMPRESSION: 1. No acute pulmonary findings. 2. The preliminary [facility] report was reviewed. DATA REPOSITORY: RADIATION DOSE DELIVERED:
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
[2025-02-14] MEDS: Ipratropium 0.5 MG/2.5 ML UPD VIAL UPD (19:24)
[2025-02-14] MEDS: Ketorolac 15 MG/ML VIAL IVP (19:44)
[2025-02-14] MEDS: Droperidol 5 MG/2 ML VIAL 2.5 MG IVP (19:44)
[2025-02-14] MEDS: ACETAMINOPHEN 1,000 MG/100 ML BAG 400 MG IVPB (19:45)
[2025-02-14] MEDS: Normal Saline 1,000 ML 1000 ML IV (19:47)
[2025-02-14 20:12] LABS: Abs Immature Grans 0.01 10^3/uL (0.0-0.06); HCT 37.8 % (36.0-46.0); HGB 12.5 g/dL (11.2-15.7); Immature Grans % 0.2 %; MCH 27.5 pg (27.0-33.0); MCHC 33.1 % (32.0-36.0); MCV 83 fL (80-95); MPV 9.1 fL (8.0-11.0); Platelet Count 165 10^3/uL (130-400); RBC 4.54 10^6/uL (3.93-5.22); RDW 13.2 % (11.7-14.6); RDW-SD 40.1 fL; WBC 5.47 10^3/uL (4.4-10.8)
[2025-02-14 20:12] LABS: COVID-19 PCR Negative (Negative); RSV PCR Negative (Negative)
[2025-02-14 20:30] LABS: ALT 35 U/L (14-59); AST 34 U/L (15-37); Albumin 3.7 g/dL (3.4-5.0); Alkaline Phosphatase 89 U/L (46-116); Anion Gap 11.5 mmol/L (3-11); BUN 7 mg/dL (7-18); Bilirubin, Total 0.5 mg/dL (0.2-1.0); CO2 23.5 mmol/L (21.0-32.0); Calcium 8.2 mg/dL (8.5-10.1); Chloride 102 mmol/L (98-107); Glucose 108 mg/dL (74-106); Potassium 3.1 mmol/L (3.5-5.1); Sodium 137 mmol/L (136-145); Total Protein 6.9 g/dL (6.4-8.2)
[2025-02-14 20:34] LABS: HCG Qual (Serum) Negative
[2025-02-14 20:39] LABS: D-Dimer 260 ng/mlFEU (<500)
--- NOTE | 2025-02-14 21:09 | DI.VRAD_ITS ---
PROCEDURE INFORMATION: Exam: XR Chest Exam date and time: 02/14/2025 8:33 PM Age: 19 years old Clinical indication: Cough TECHNIQUE: Imaging protocol: Radiologic exam of the chest. Views: 2 views. COMPARISON: CT CHEST PE CTA 04/01/2022 3:38 PM FINDINGS: Lungs: Unremarkable. No consolidation. Pleural spaces: Unremarkable. No pleural effusion. No pneumothorax. Heart/Mediastinum: Unremarkable. No cardiomegaly. Bones/joints: There is marked dextroscoliosis of the thoracic spine. IMPRESSION: No acute abnormality evident in the chest. Dictated and Authenticated by: Veronica Pemberton MD. Orderin Hugo Govea MD
== END 2025-02-14 21:18 | disposition home or self-care (01) ==
PROVIDERS: Emergency Provider General Practice; PCP Family Medicine
DX: R07.9 Chest pain, unspecified (principal); M54.9 Dorsalgia, unspecified; R05.9 Cough, unspecified; R11.2 Nausea with vomiting, unspecified
CPT/HCPCS: 80053; 87637; 93005; 94640; 96361; 96365; 96375; 99284; 71046; 83605; 84703; 85025; 85379; 93010; J0131; J1790; J1885; J7644

== ENCOUNTER 2025-03-14 02:07 | Emergency (ER) | payer MEDICAID, SELFPAY ==
[2025-03-14 02:05] VITALS: BP 145/120; PULSE 96; RESP 25; TEMP 36.3; O2SAT 98
--- NOTE | 2025-03-14 02:15 | DI.CT_ITS ---
Exam(s) CT ABDOMEN PELVIS W EXAM: CT ABDOMEN PELVIS W CLINICAL HISTORY: diffuse abdominal pain, vomiting TECHNIQUE: Imaging Protocol: Axial computed tomography images with coronal and sagittal reformatted images were created and reviewed. CONTRAST MATERIAL: Intravenous: Omnipaque 350 Contrast volume:60 mL Oral: No COMPARISON: CT CT ABDOMEN PELVIS W from 12/31/[address] ABDOMEN PELVIS W from 09/25/[address] ABDOMEN PELVIS W from 01/28/2025 FINDINGS: ABDOMEN: Lung Bases: No acute abnormality. Liver: Normal density. No measurable mass. Portal, Superior Mesenteric, and Splenic Veins: Unremarkable. Gallbladder and Biliary Tract: No radiodense calculus or dilation. Pancreas: Normal density, no abnormal calcifications or inflammatory process. Spleen: Normal. Adrenals: No masses seen. Kidneys: Normal size, contour and axis. No radiodense stones or obstructive uropathy. No masses seen. Abdominal Aorta: Abdominal portion non-dilated. Bowel: There is mild small bowel wall thickening seen in the left upper quadrant and the right lower quadrant, possibly the terminal ileum. The colon is unremarkable. The stomach is incompletely distended limiting evaluation. There is no evidence of appendicitis. Peritoneal Cavity: No ascites, collection or mesenteric inflammatory response. No free air. Lymph Nodes: Within normal limits. Bones: Within normal limits for the patient's age. There is a left convex thoracolumbar scoliosis. Soft Tissues: Unremarkable. PELVIS: Bladder: Symmetric distention, no gross wall thickening. Reproductive Organs: Ovarian follicles are seen on the left ovary. The largest measures 2.0 cm (series 8, image 76). Lymph Nodes: Within normal limits. Bones: Within normal limits for the patient's age. IMPRESSION: 1. Mild small bowel wall thickening which can be seen with infectious or inflammatory enteritis. Please correlate clinically. 2. Physiologic left ovarian follicles. The largest measures 2 cm. 3. The preliminary [facility] report was reviewed. RADIATION DOSE DELIVERED: 168.63mGy.cm Total DLP DATA REPOSITORY: All CT scans at this facility are submitted to the National Radiology Data Registry (NRDR) Dose Index Registry (DIR) with the [employer] (ACR). RADIATION OPTIMIZATION: All CT scans at this facility use at least one of these dose optimization techniques: automated exposure control; mA and/or kV adjustment per patient size (includes targeted exams where dose is matched to clinical indication); or iterative reconstruction.
[2025-03-14 02:51] LABS: Abs Immature Grans 0.09 10^3/uL (0.0-0.06); HCT 41.1 % (36.0-46.0); HGB 13.9 g/dL (11.2-15.7); Immature Grans % 0.5 %; MCH 27.8 pg (27.0-33.0); MCHC 33.8 % (32.0-36.0); MCV 82 fL (80-95); MPV 9.5 fL (8.0-11.0); Platelet Count 296 10^3/uL (130-400); RBC 5.00 10^6/uL (3.93-5.22); RDW 13.2 % (11.7-14.6); RDW-SD 39.3 fL; WBC 17.25 10^3/uL (4.4-10.8)
[2025-03-14] MEDS: ACETAMINOPHEN 1,000 MG/100 ML BAG 400 MG IVPB (02:52)
[2025-03-14 02:58] LABS: Glucose Negative (Negative)
[2025-03-14] MEDS: Normal Saline 1,000 ML 1000 ML IV ×2 (02:58→03:30)
[2025-03-14] MEDS: Droperidol 5 MG/2 ML VIAL 1.25 MG IVP (03:01)
[2025-03-14 03:05] LABS: HCG Qual (Serum) Negative
[2025-03-14 03:06] LABS: Magnesium 1.8 mg/dL (1.6-2.6)
[2025-03-14 03:07] LABS: ALT 18 U/L (10-49); AST 20 U/L (<34); Albumin 4.5 g/dL (3.2-5.0); Alkaline Phosphatase 74 U/L (46-116); Anion Gap 15.9 mmol/L (3-11); BUN 14 mg/dL (9-23); Bilirubin, Total 0.70 mg/dL (0.2-1.2); CO2 21.1 mmol/L (20.0-31.0); Calcium 8.9 mg/dL (8.3-10.6); Chloride 103 mmol/L (98-107); Glucose 148 mg/dL (74-106); Potassium 3.8 mmol/L (3.5-5.1); Sodium 140 mmol/L (136-145); Total Protein 7.1 g/dL (5.7-8.2)
[2025-03-14] MEDS: Normal Saline Flush 10 ML SYR IVP (03:41)
[2025-03-14] MEDS: Omnipaque 350 MG/ML 100 ML BTL IJ (03:42)
[2025-03-14] MEDS: Normal Saline - Diluent 50 ML VIAL IJ (03:42)
--- NOTE | 2025-03-14 03:54 | DI.[facility]_ITS ---
PROCEDURE INFORMATION: Exam: CT Abdomen And Pelvis With Contrast Exam date and time: 03/14/2025 3:17 AM Age: 19 years old Clinical indication: Vomiting; Abdominal pain; Additional info: Diffuse abdominal pain, vomiting TECHNIQUE: Imaging protocol: Computed tomography of the abdomen and pelvis with contrast. Contrast material: OMNI 350; Contrast volume: 60 ml; Contrast route: INTRAVENOUS (IV); COMPARISON: CT ABDOMEN PELVIS W 01/28/2025 11:20 AM FINDINGS: Limitations: Paucity of intra-abdominal fat. Lungs: Lung bases clear. Liver: Normal appearing liver. Gallbladder and biliary ducts: Normal appearing gallbladder. No calcified gallstones. No biliary dilatation. Pancreas: Normal appearing pancreas. Spleen: Normal appearing spleen. Adrenal glands: Adrenal glands partially obscured but grossly unremarkable, as seen. Kidneys and ureters: Normal appearing kidneys. No hydronephrosis. Stomach and bowel: No oral contrast. Stomach partially decompressed. No small bowel dilatation to suggest obstruction. Colon largely well evacuated of fecal material. Fluid throughout much of the colon suspicious for diarrhea or impending diarrhea. Apparent mural thickening through the collapsed portions of the colon. Artifact of incomplete distention suspected. Mimicking colitis not excluded. No focal acute diverticulitis. Appendix: Appendix partially obscured but normal in caliber and appearance through its visualized portion. Intraperitoneal space: No gross ascites or free air. Vasculature: Normal caliber abdominal aorta. Lymph nodes: Within the limits of visualization, no bulky adenopathy. Urinary bladder: Urinary bladder partially collapsed but grossly unremarkable, as seen. Reproductive: Uterus and ovaries partially obscured but normal in size. 2.0 cm dominant left ovarian follicle. Bones/joints: S-shaped spinal curvature. No acute fracture seen among the bones of the abdomen or pelvis. Spinal degenerative change with small Schmorl's nodes at several levels. Soft tissues: No significant ventral or inguinal hernia. IMPRESSION: 1. 2.0 cm dominant left ovarian follicle. No gross free pelvic fluid demonstrated. 2. No acute bowel pathology demonstrated. Dictated and Authenticated by: Kojo Turk MD. Orderin Phill Harris MD
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
[2025-03-14 04:04] LABS: Lab Add On Test DONE
[2025-03-14 04:15] LABS: Lipase 24 U/L (<53)
[2025-03-14 04:29] VITALS: BP 128/65; PULSE 88; RESP 18; TEMP 37; O2SAT 100
[2025-03-14 04:48] LABS: BE (Venous) 0 mmol/L (-2-3); HCO3 (Venous) 25 mmol/L (23-28); O2 Sat (Venous) 82 %; TCO2 (Venous) 23 mmol/L (24-29); pCO2 (Venous) 43 mmHg (41-51); pO2 (Venous) 46 mmHg
[2025-03-14] MEDS: Ondansetron O.D.T. 4 MG TABEF, 3 TABS/BTL PO (05:18)
== END 2025-03-14 05:30 | disposition home or self-care (01) ==
PROVIDERS: Emergency Provider Student in an Organized Health Care Education/Training Program; PCP Family Medicine
DX: R11.10 Vomiting, unspecified (principal); R10.9 Unspecified abdominal pain; Z87.891 Personal history of nicotine dependence
CPT/HCPCS: 36415; 80053; 81025; 82805; 83690; 96361; 96365; 96375; 99285; 74177; 81003; 83605; 83735; 84703; 85025; J0131; J1790; J3490

== ENCOUNTER 2025-03-26 08:04 | Outpatient (CLI) | payer MEDICAID, SELFPAY | END 2025-03-26 08:05 | disposition home or self-care (01) | PROVIDERS: PCP Family Medicine | DX: R00.2 Palpitations (principal) | CPT/HCPCS: 93246 ==